=== PATIENT | female | born 1965 | race Caucasian/White ===

== ENCOUNTER 2016-07-30 14:14 | Emergency (ER) | payer SELFPAY ==
[2016-07-30 15:22] VITALS: TEMP 98.7; O2SAT 94
[2016-07-30] MEDS ORDERED: cefTRIAXone SODIUM 1 GM VIAL IM ONE (16:30)
--- NOTE | 2016-07-30 16:33 | ED.PDOC ---
History of Present Illness - General Chief Complaint: Problem Stated Complaint: Dysuria, Bilateral Flank Pain Time Seen by Provider: 07/30/16 15:29 Source: patient Exam Limitations: no limitations - History of Present Illness Initial Comments: The patient is a 51-year-old female presenting to the emergency room secondary to mild diffuse low back pain along with some generalized body aches as well as some dysuria and frequency for somewhere between 1-2 weeks. She has had urinary tract infections in the past. She does have a history of multiple medical problems as well. She sees Dr. Cardona in [place] Timing/Duration: unsure Severity: moderate Improving Factors: nothing Worsening Factors: nothing Associated Symptoms: malaise Allergies/Adverse Reactions: Allergies Clindamycin Allergy (Verified 07/30/16 15:27) Home Medications: Ambulatory Orders Citalopram Hydrobromide [Celexa] 40 mg PO DAILY 10/26/14 Gabapentin 800 mg PO TID 10/26/14 HYDROcodone 10MG/APAP 325MG [[place] 10/325] 1 ea PO QID 10/26/14 Alprazolam [Xanax] 1 mg PO BEDTIME 11/03/15 Levofloxacin [Levaquin] 500 mg PO DAILY #8 tab 11/05/15 Omeprazole Magnesium [Prilosec Otc] 20 mg PO DAILY #30 tab 11/05/15 Probiotic Product [Probiotic] 1 tab PO DAILY #10 tab 11/05/15 guaiFENesin ER TAB [Mucinex Tab] 600 mg PO BID #0 tab 11/05/15 Cephalexin Monohydrate [Keflex] 500 mg PO Q8H #21 cap 07/30/16 Review of Systems - Review of Systems Constitutional: States: malaise, weakness - mild EENTM: States: no symptoms reported Respiratory: States: no symptoms reported Cardiology: States: no symptoms reported Gastrointestinal/Abdominal: States: abdominal pain - mild suprapubic discomfort and cramping Genitourinary: States: dysuria, frequency Musculoskeletal: States: back pain Skin: States: no symptoms reported Neurological: States: no symptoms reported All other Systems: No Change from Baseline Past Medical History (General) - Patient Medical History Hx Seizures: No Hx Stroke: No Hx Dementia: No Hx Asthma: No Hx of COPD: No Hx Cardiac Disorders: No Hx Congestive Heart Failure: No Hx Pacemaker: No Hx Hypertension: No Hx Thyroid Disease: No Hx Diabetes: No Hx Gastroesophageal Reflux: Yes Hx Renal Disease: No Hx Cancer: No Hx of HIV: No Hx Hepatitis C: No Hx MRSA: No Surgical History: Hysterectomy - Vaccination History Hx Tetanus, Diphtheria Vaccination: No Hx Influenza Vaccination: No Hx Pneumococcal Vaccination: Yes Immunizations Up to Date: No - Social History Hx Tobacco Use: No Hx Chewing Tobacco Use: No Hx Alcohol Use: No Hx Substance Use: No Hx Substance Use Treatment: No Hx Depression: No Feels Threatened In Home Enviroment: No Feels Threatened In a Relationship: No Hx Physical Abuse: No Hx Emotional Abuse: No Hx Suspected Abuse: No - Activities of Daily Living Hospice Agency (if applicable):: None - Female History Patient is a Female of Child Bearing Age (10 -59 yrs old): No Patient : No Family Medical History - Family History Father Living Status: Hx Cardiac Disease: Yes Hx Family Diabetes: Yes Mother Family History: Unknown Hx Family Hypertension: Yes Hx Family Diabetes: Yes Physical Exam - Physical Exam General Appearance: Alert, Comfortable, No apparent distress Eye Exam: bilateral normal Ears, Nose, Throat: hearing grossly normal, normal ENT inspection, normal pharynx Neck: non-tender, full range of motion, supple Respiratory: chest non-tender, lungs clear, normal breath sounds, no respiratory distress, no accessory muscle use Cardiovascular/Chest: normal peripheral pulses, regular rate, rhythm, no edema Peripheral Pulses: radial,right: 2+, radial,left: 2+ Rectal Exam: deferred Back Exam: normal inspection, no CVA tenderness, no vertebral tenderness, other - the pain does appear to be present in her back bilaterally lower, but does not appear to be worse with palpation or percussion Extremity: normal range of motion, non-tender, normal inspection, no pedal edema , normal capillary refill Neurologic: alert, normal mood/affect, oriented x 3 Skin Exam: normal color Comments: Vital Signs - 24 hr 07/30/16 15:16 Temperature 98.7 F Pulse Rate [R 95 H Arm] Respiratory 18 Rate Blood Pressure 157/97 [l aRM] O2 Sat by Pulse 94 L Oximetry Progress - Progress Progress: 07/30/16 16:33 the patient is a 51-year-old female presenting to the emergency room with what appears to be cystitis and symptoms related to it. Urine culture is being performed. She needs to follow-up with her primary care doctor on Saturday to obtain a culture result to change antibiotics if necessary. She needs to keep well hydrated. ER warnings were given for any acute worsening. The patient will be placed on Keflex for 7 days. Ibuprofen can be used with food to help reduce back discomfort if needed. - Results/Orders Results/Orders: 07/30/16 15:15 URINE CULTURE W/COLONY COUNT Stat Laboratory Results - last 24 hr 07/30/16 15:15 Urine Color [place] H Urine Appearance Cloudy Urine pH 8.5 H Ur Specific [place] 1.015 Urine Protein 100 H Urine Glucose (UA) 250 H Urine Ketones Trace Urine Blood Negative Urine Nitrite Positive H Urine Bilirubin Small H Urine Urobilinogen 4.0 H Ur Leukocyte Esterase Large H Urine RBC 3-5 H Urine WBC 20-30 H Ur Epithelial Cells 3-5 Amorphous Sediment 3+ Urine Bacteria 3+ H Urine Mucus Small - EKG/XRAY/CT CT Ordered: No CT Interpretation Call Back: No Departure - Departure Clinical Impression: Cystitis Disposition: Discharge to Home or Self Care Condition: Fair Departure Forms: ED Discharge - Pt. Copy, Patient Portal Self Enrollment Instructions: DI for Interstitial Cystitis Diet: regular diet Activity: increase activity as tolerated Referrals: Yemi Cardona MD [Primary Care Provider] - 1-5 Days Prescriptions: Cephalexin Monohydrate [Keflex] 500 mg PO Q8H #21 cap Home Medications: Ambulatory Orders Citalopram Hydrobromide [Celexa] 40 mg PO DAILY 10/26/14 Gabapentin 800 mg PO TID 10/26/14 HYDROcodone 10MG/APAP 325MG [[place] 10/325] 1 ea PO QID 10/26/14 Alprazolam [Xanax] 1 mg PO BEDTIME 11/03/15 Levofloxacin [Levaquin] 500 mg PO DAILY #8 tab 11/05/15 Omeprazole Magnesium [Prilosec Otc] 20 mg PO DAILY #30 tab 11/05/15 Probiotic Product [Probiotic] 1 tab PO DAILY #10 tab 11/05/15 guaiFENesin ER TAB [Mucinex Tab] 600 mg PO BID #0 tab 11/05/15 Cephalexin Monohydrate [Keflex] 500 mg PO Q8H #21 cap 07/30/16 Additional Instructions: the patient is a 51-year-old female presenting to the emergency room with what appears to be cystitis and symptoms related to it. Urine culture is being performed. She needs to follow-up with her primary care doctor on Saturday to obtain a culture result to change antibiotics if necessary. She needs to keep well hydrated. ER warnings were given for any acute worsening. The patient will be placed on Keflex for 7 days. Ibuprofen can be used with food to help reduce back discomfort if needed. the patient does additionally have some glucose in her urine which needs to be followed up with her primary care doctor in the near future. This may simply be due to the infection but does need following.
[2016-07-30] MEDS ORDERED: LIDOCAINE 1% 10 ML VIAL INJ ONE (16:37)
[2016-07-30 17:17] VITALS: BP 162/99
== END 2016-07-30 17:05 | disposition home or self-care (01) ==
LOC: ER 14:14
DX: N30.90 Cystitis, unspecified without hematuria (principal); K21.9 Gastro-esophageal reflux disease without esophagitis; Z88.3 Allergy status to other anti-infective agents; Z79.899 Other long term (current) drug therapy

== ENCOUNTER 2017-08-22 09:53 | Emergency (ER) | payer SELFPAY ==
[2017-08-22] MEDS ORDERED: KETOROLAC TROMETHAMINE INJ 60 MG/2 ML VIAL IM ONE (10:05)
--- NOTE | 2017-08-22 10:09 | ED.PDOC ---
History of Present Illness - General Chief Complaint: Lower Extremity Injury Time Seen by Provider: 08/22/17 10:05 Source: patient, RN notes reviewed Additional Information: 52 YEAR OLD TRIPPED AND INJURED HER LEFT ANKLE LAST NIGHT AT 1 PM UNABLE TO WEIGHT BEAR HAS BEEN USING CRUTCHES REPORTS TO OTHER INJURY SHE IS IN PAIN AND DISCOMFORT AT THIS TIME - History of Present Illness Occurred: yesterday Pain - Lower Extremity: mild: Left Ankle Method of Injury: fell Improving Factors: nothing Worsening Factors: movement Allergies/Adverse Reactions: Allergies Clindamycin Allergy (Verified 07/30/16 15:27) Home Medications: Ambulatory Orders Citalopram Hydrobromide [Celexa] 40 mg PO DAILY 10/26/14 Gabapentin 800 mg PO TID 10/26/14 HYDROcodone 10MG/APAP 325MG [[place] 10/325] 1 ea PO QID 10/26/14 Alprazolam [Xanax] 1 mg PO BEDTIME 11/03/15 Levofloxacin [Levaquin] 500 mg PO DAILY #8 tab 11/05/15 Omeprazole Magnesium [Prilosec Otc] 20 mg PO DAILY #30 tab 11/05/15 Probiotic Product [Probiotic] 1 tab PO DAILY #10 tab 11/05/15 guaiFENesin ER TAB [Mucinex Tab] 600 mg PO BID #0 tab 11/05/15 Cephalexin Monohydrate [Keflex] 500 mg PO Q8H #21 cap 07/30/16 Acetamin W/Cod #3 Tab [Tylenol w/CODEINE #3] 1 ea PO Q6HR PRN #40 tab 08/22/17 Review of Systems - Review of Systems Constitutional: States: no symptoms reported EENTM: States: no symptoms reported Respiratory: States: no symptoms reported Cardiology: States: no symptoms reported Gastrointestinal/Abdominal: States: no symptoms reported Genitourinary: States: no symptoms reported Musculoskeletal: States: no symptoms reported, see HPI Skin: States: no symptoms reported Neurological: States: no symptoms reported Endocrine: States: no symptoms reported Past Medical History (General) - Patient Medical History Hx Seizures: No Hx Stroke: No Hx Dementia: No Hx Asthma: No Hx of COPD: No Hx Cardiac Disorders: No Hx Congestive Heart Failure: No Hx Pacemaker: No Hx Hypertension: No Hx Thyroid Disease: No Hx Diabetes: No Hx Gastroesophageal Reflux: Yes Hx Renal Disease: No Hx Cancer: No Hx of HIV: No Hx Hepatitis C: No Hx MRSA: No - Vaccination History Hx Tetanus, Diphtheria Vaccination: No Hx Influenza Vaccination: No Hx Pneumococcal Vaccination: Yes - Social History Hx Tobacco Use: No Hx Chewing Tobacco Use: No Hx Alcohol Use: No Hx Substance Use: No Hx Substance Use Treatment: No Hx Depression: No Hx Physical Abuse: No Hx Emotional Abuse: No Hx Suspected Abuse: No - Female History Patient : No Family Medical History - Family History Father Living Status: Hx Cardiac Disease: Yes Hx Family Diabetes: Yes Mother Family History: Unknown Hx Family Hypertension: Yes Hx Family Diabetes: Yes Physical Exam - Physical Exam General Appearance: Alert, Anxious Eyes, Ears, Nose, Throat: PERRL/EOMI, normal ENT inspection, TMs normal Neck: non-tender, full range of motion, supple Cardiovascular/Respiratory: regular rate, rhythm, no M/R/G, normal peripheral pulses Back: normal inspection, no CVA tenderness, no vertebral tenderness Ankle: deformity, ecchymosis, limited ROM, soft tissue tenderness, swelling Foot: normal inspection, non-tender, no evidence of injury Neuro/Tendon: normal sensation, normal motor functions, normal tendon functions Progress - Results/Orders Results/Orders: x ray reviewed has a fracture of the lateral malleolus with provide short leg ocl crutches and follow up with ORTHO DR BRIAN Departure - Departure Clinical Impression: Closed fracture of ankle, Fracture of distal end of fibula Disposition: Discharge to Home or Self Care Condition: Good Departure Forms: ED Discharge - Pt. Copy, Patient Portal Self Enrollment Instructions: DI for Leg Pain Activity: other - NON WEIGHT BEARING USE OF CRUTCHES SUGGESTED Referrals: Yemi Cardona MD [Primary Care Provider] - 1-2 Weeks Prescriptions: Acetamin W/Cod #3 Tab [Tylenol w/CODEINE #3] 1 ea PO Q6HR PRN #40 tab PRN Reason: Mild To Moderate Pain Home Medications: Ambulatory Orders Citalopram Hydrobromide [Celexa] 40 mg PO DAILY 10/26/14 Gabapentin 800 mg PO TID 10/26/14 HYDROcodone 10MG/APAP 325MG [[place] 10/325] 1 ea PO QID 10/26/14 Alprazolam [Xanax] 1 mg PO BEDTIME 11/03/15 Levofloxacin [Levaquin] 500 mg PO DAILY #8 tab 11/05/15 Omeprazole Magnesium [Prilosec Otc] 20 mg PO DAILY #30 tab 11/05/15 Probiotic Product [Probiotic] 1 tab PO DAILY #10 tab 11/05/15 guaiFENesin ER TAB [Mucinex Tab] 600 mg PO BID #0 tab 11/05/15 Cephalexin Monohydrate [Keflex] 500 mg PO Q8H #21 cap 07/30/16 Acetamin W/Cod #3 Tab [Tylenol w/CODEINE #3] 1 ea PO Q6HR PRN #40 tab 08/22/17
[2017-08-22 10:10] VITALS: TEMP 99.7; O2SAT 98
--- NOTE | 2017-08-22 10:38 | RAD ---
EXAM DESCRIPTION: Ankle,Left 3 Views CLINICAL HISTORY: trauma COMPARISON: None. IMPRESSION: 3 views of the left ankle show a comminuted spiral fracture of the distal fibula at and proximal to the level of the ankle mortise with mild posterior and lateral displacement of the distal fracture fragment. The ankle mortise appears maintained. No obvious medial malleolar fracture is seen. Moderate soft tissue swelling of the lateral malleolus is seen with small ankle joint effusion. Moderate plantar enthesophyte of the calcaneus is seen. Electronically signed by: Joey Galindo MD 08/22/2017 10:37 AM CDT
[2017-08-22 11:47] VITALS: BP 114/76
== END 2017-08-22 11:47 | disposition home or self-care (01) ==
LOC: ER 09:53
DX: S82.62XA Displaced fracture of lateral malleolus of left fibula, initial encounter for closed fracture (principal); W01.0XXA Fall on same level from slipping, tripping and stumbling without subsequent striking against object, initial encounter
CPT/HCPCS: 73610; J1885

== ENCOUNTER 2017-11-26 16:26 | Emergency (ER) | payer SELFPAY ==
[2017-11-26 16:38] VITALS: TEMP 98.4
--- NOTE | 2017-11-26 16:46 | ED.PDOC ---
History of Present Illness - General Chief Complaint: Upper Extremity Injury Stated Complaint: right wrist pain Time Seen by Provider: 11/26/17 16:43 Source: patient Exam Limitations: no limitations - History of Present Illness Initial Comments: FELL ON AN OUTSTRETCHED HAND A WEEK AGO. NO C/O PAIN TO THE RIGHT PROXIMAL METACARPAL Occurred: other - 8 DAYS AGO Pain - Upper Extremity: moderate: Hand, right Method of Injury: fell Improving Factors: nothing Worsening Factors: nothing Allergies/Adverse Reactions: Allergies Clindamycin Allergy (Verified 11/26/17 16:38) Vomitting Home Medications: Ambulatory Orders Citalopram Hydrobromide [Celexa] 40 mg PO DAILY 10/26/14 Gabapentin 800 mg PO TID 10/26/14 HYDROcodone 10MG/APAP 325MG [[place] 10/325] 1 ea PO QID 10/26/14 Alprazolam [Xanax] 1 mg PO BEDTIME 11/03/15 Levofloxacin [Levaquin] 500 mg PO DAILY #8 tab 11/05/15 Omeprazole Magnesium [Prilosec Otc] 20 mg PO DAILY #30 tab 11/05/15 Probiotic Product [Probiotic] 1 tab PO DAILY #10 tab 11/05/15 guaiFENesin ER TAB [Mucinex Tab] 600 mg PO BID #0 tab 11/05/15 Cephalexin Monohydrate [Keflex] 500 mg PO Q8H #21 cap 07/30/16 Acetamin W/Cod #3 Tab [Tylenol w/CODEINE #3] 1 ea PO Q6HR PRN #40 tab 08/22/17 Tramadol HCl 50 mg PO Q6HR #20 tab 11/26/17 Review of Systems - Review of Systems Constitutional: States: no symptoms reported EENTM: States: no symptoms reported Respiratory: States: no symptoms reported Cardiology: States: no symptoms reported Gastrointestinal/Abdominal: States: no symptoms reported Genitourinary: States: no symptoms reported Musculoskeletal: States: other - RIGHT HAND PAIN Skin: States: no symptoms reported Neurological: States: no symptoms reported Endocrine: States: no symptoms reported Past Medical History (General) - Patient Medical History Hx Seizures: No Hx Stroke: No Hx Dementia: No Hx Asthma: No Hx of COPD: No Hx Cardiac Disorders: No Hx Congestive Heart Failure: No Hx Pacemaker: No Hx Hypertension: No Hx Thyroid Disease: No Hx Diabetes: No Hx Gastroesophageal Reflux: Yes Hx Renal Disease: No Hx Cancer: No Hx of HIV: No Hx Hepatitis C: No Hx MRSA: No Surgical History: Hysterectomy - Vaccination History Hx Tetanus, Diphtheria Vaccination: No Hx Influenza Vaccination: No Hx Pneumococcal Vaccination: Yes - Social History Hx Tobacco Use: No Hx Chewing Tobacco Use: No Hx Alcohol Use: No Hx Substance Use: No Hx Substance Use Treatment: No Hx Depression: No Hx Physical Abuse: No Hx Emotional Abuse: No Hx Suspected Abuse: No - Female History Patient : No Family Medical History - Family History Father Living Status: Hx Cardiac Disease: Yes Hx Family Diabetes: Yes Mother Family History: Unknown Hx Family Hypertension: Yes Hx Family Diabetes: Yes Physical Exam - Physical Exam General Appearance: Alert, No apparent distress Eyes, Ears, Nose, Throat Exam: PERRL/EOMI, normal ENT inspection, TMs normal, pharynx normal Neck: non-tender, full range of motion, supple, normal inspection Cardiovascular/Respiratory: regular rate, rhythm, normal peripheral pulses, no JVD, normal breath sounds, no respiratory distress Abdominal Exam: non-tender Back Exam: normal inspection Elbow/Forearm Exam: normal inspection, non-tender, no evidence of injury Wrist Exam: normal inspection Hand Exam: asymmetry, deformity - ON THE BASE OF THE RIGHT FIFTH METACARPAL Mental Status: alert, oriented x 3 Skin Exam: normal color Progress - Results/Orders Results/Orders: 1745: MINIMALLY DISPLACED FRQACTURE OF THE BASE OF THE RIGHT PROXIMAL METACARPAL. VELCROW WRIST SPLINT APPLIED Departure - Departure Clinical Impression: Boxers fracture Qualifiers: Encounter type: initial encounter Fracture type: closed Qualified Code(s): S62.339A - Displaced fracture of neck of unspecified metacarpal bone, initial encounter for closed fracture Time of Disposition: 17:45 Disposition: Discharge to Home or Self Care Condition: Good Departure Forms: ED Discharge - Pt. Copy, Patient Portal Self Enrollment Instructions: DI for Arm Pain, DI for Hand Pain, Boxer's Fracture Referrals: Yemi Cardona MD [Primary Care Provider] - 1-2 Weeks Prescriptions: Tramadol HCl 50 mg PO Q6HR #20 tab Home Medications: Ambulatory Orders Citalopram Hydrobromide [Celexa] 40 mg PO DAILY 10/26/14 Gabapentin 800 mg PO TID 10/26/14 HYDROcodone 10MG/APAP 325MG [[place] 10/325] 1 ea PO QID 10/26/14 Alprazolam [Xanax] 1 mg PO BEDTIME 11/03/15 Levofloxacin [Levaquin] 500 mg PO DAILY #8 tab 11/05/15 Omeprazole Magnesium [Prilosec Otc] 20 mg PO DAILY #30 tab 11/05/15 Probiotic Product [Probiotic] 1 tab PO DAILY #10 tab 11/05/15 guaiFENesin ER TAB [Mucinex Tab] 600 mg PO BID #0 tab 11/05/15 Cephalexin Monohydrate [Keflex] 500 mg PO Q8H #21 cap 07/30/16 Acetamin W/Cod #3 Tab [Tylenol w/CODEINE #3] 1 ea PO Q6HR PRN #40 tab 08/22/17 Tramadol HCl 50 mg PO Q6HR #20 tab 11/26/17 Additional Instructions: FOLLOW UP WITH DR. DIAZ-ORTHOPEDIC SURGEON
--- NOTE | 2017-11-26 17:17 | RAD ---
EXAM: Hand,Right 3 Views CLINICAL INDICATION: 52-year-old female with painful RIGHT fifth metacarpal. TECHNIQUE: Three views RIGHT hand were obtained in AP, lateral and oblique projections COMPARISON: None. FINDINGS: Oblique fracture of the base of the fifth digit metacarpal minimally displaced. Soft tissue swelling of the dorsum of the hand. No additional fracture is identified. No dislocation. Incidentally noted negative ulnar variance IMPRESSION: Minimally displaced fifth metacarpal fracture as detailed above. Electronically signed by: Karen Lundberg MD 11/26/2017 5:16 PM CDT
[2017-11-26 18:02] VITALS: BP 115/77; O2SAT 94
== END 2017-11-26 18:02 | disposition home or self-care (01) ==
LOC: ER 16:26
DX: S62.339A Displaced fracture of neck of unspecified metacarpal bone, initial encounter for closed fracture (principal); K21.9 Gastro-esophageal reflux disease without esophagitis; Z79.899 Other long term (current) drug therapy; Z88.1 Allergy status to other antibiotic agents; W18.39XA Other fall on same level, initial encounter; Y92.9 Unspecified place or not applicable

== ENCOUNTER 2018-05-16 21:05 | Emergency (ER) | payer SELFPAY ==
[2018-05-16] MEDS ORDERED: IPRATROPIUM/ALBUTEROL 3 ML VIAL NEB ONE ×2 (21:08→21:25)
--- NOTE | 2018-05-16 21:21 | ED.PDOC ---
History of Present Illness - General Stated Complaint: DIFFICULTY BREATHING WEAKNESS Time Seen by Provider: 05/16/18 21:15 Source: EMS notes reviewed, family Additional Information: 53 YEAR OLD BROUGHT HERE BY DAUGHTER FOR EVALUATION OF DIFFICULTY BREATHING WEAKNESS AND LETHARGY SHE HAS HISTORY OF ASPIRATION PNEUMONIA ONCE OT TWICE A YEAR SHE ALSO HAS HISTORY OF ANEMIA SHE IS NOT A SMOKER NO HISTORY OF CHF ASTHMA OR COPD SHE HAS BEEN IN RESPIRATORY FAILURE IN THE PAST REQUIRING VENTILATOR SUPPORT - History of Present Illness Timing/Duration: 1 week Improving Factors: nothing Worsening Factors: nothing Associated Symptoms: cough, loss of appetite, weakness Allergies/Adverse Reactions: Allergies Clindamycin Allergy (Verified 11/26/17 16:38) Vomitting Home Medications: Ambulatory Orders Citalopram Hydrobromide [Celexa] 40 mg PO DAILY 10/26/14 Gabapentin 800 mg PO TID 10/26/14 HYDROcodone 10MG/APAP 325MG [[place] 10/325] 1 ea PO QID 10/26/14 Alprazolam [Xanax] 1 mg PO BEDTIME 11/03/15 Levofloxacin [Levaquin] 500 mg PO DAILY #8 tab 11/05/15 Omeprazole Magnesium [Prilosec Otc] 20 mg PO DAILY #30 tab 11/05/15 Probiotic Product [Probiotic] 1 tab PO DAILY #10 tab 11/05/15 guaiFENesin ER TAB [Mucinex Tab] 600 mg PO BID #0 tab 11/05/15 Cephalexin Monohydrate [Keflex] 500 mg PO Q8H #21 cap 07/30/16 Acetamin W/Cod #3 Tab [Tylenol w/CODEINE #3] 1 ea PO Q6HR PRN #40 tab 08/22/17 Tramadol HCl 50 mg PO Q6HR #20 tab 11/26/17 Review of Systems - Review of Systems Unable to Obtain Due To: condition - PT IS VERY LETHARGIC ANS SLEEPY NOT ABLE TO TALK Past Medical History (General) - Patient Medical History Hx Seizures: No Hx Stroke: No Hx Dementia: No Hx Asthma: No Hx of COPD: No Hx Cardiac Disorders: No Hx Congestive Heart Failure: No Hx Pacemaker: No Hx Hypertension: No Hx Thyroid Disease: No Hx Diabetes: No Hx Gastroesophageal Reflux: Yes Hx Renal Disease: No Hx Cancer: No Hx of HIV: No Hx Hepatitis C: No Hx MRSA: No - Vaccination History Hx Tetanus, Diphtheria Vaccination: No Hx Influenza Vaccination: No Hx Pneumococcal Vaccination: Yes - Social History Hx Tobacco Use: No Hx Chewing Tobacco Use: No Hx Alcohol Use: No Hx Substance Use: No Hx Substance Use Treatment: No Hx Depression: No Hx Physical Abuse: No Hx Emotional Abuse: No Hx Suspected Abuse: No - Female History Patient : No Family Medical History - Family History Father Living Status: Hx Cardiac Disease: Yes Hx Family Diabetes: Yes Mother Family History: Unknown Hx Family Hypertension: Yes Hx Family Diabetes: Yes Physical Exam - Physical Exam General Appearance: Obvious distress, Ill Appearing Eye Exam: bilateral normal Ears, Nose, Throat: hearing grossly normal, normal ENT inspection, normal pharynx Neck: non-tender, full range of motion, supple Respiratory: chest non-tender, respiratory distress, decreased breath sounds, crackles, rhonchi Cardiovascular/Chest: normal peripheral pulses, regular rate, rhythm, no edema, tachycardia Gastrointestinal/Abdominal: normal bowel sounds, non tender, soft, no organomegaly, no pulsatile mass Back Exam: normal inspection, no CVA tenderness, no vertebral tenderness Extremity: normal range of motion, non-tender, normal inspection, no pedal edema Neurologic: other - VERY SLEEPY UNABLE TO PERFORM NEURO EXAM MOVING ALL 4 EXTREMITIES Progress - Results/Orders Results/Orders: Laboratory Tests 05/16/18 05/16/18 05/16/18 21:20 21:20 21:29 WBC 14.4 H RBC 2.65 L Hgb 7.8 L* Hct 23.4 L MCV 88.4 MCH 29.4 MCHC 33.4 RDW 20.2 H Plt Count 437 H MPV 8.3 Absolute Neuts (auto) 10.40 H Absolute Lymphs (auto) 2.70 Absolute Monos (auto) 1.20 H Absolute Eos (auto) 0.00 Absolute Basos (auto) 0.00 Neutrophils % 72.0 Lymphocytes % 18.9 L Monocytes % 8.6 Eosinophils % 0.3 L Basophils % 0.2 pCO2 47 H pO2 53 L HCO3 32.0 ABG pH 7.450 ABG O2 Saturation 90.1 L ABG Base Excess 7.5 ABG Deoxyhemoglobin 9.7 H Oxyhemoglobin % 88.4 L Carboxyhemoglobin % 0.6 Methemoglobin % Sat 1.3 Calc Total Hemoglobin 8.6 L Sodium 134 L Potassium 3.4 L Chloride 95 L Carbon Dioxide 28 Anion Gap 14.4 BUN 18 Creatinine 0.69 BUN/Creatinine Ratio 26.1 H Random Glucose 130 H Serum Osmolality 271.9 L Calcium 8.7 Total Bilirubin 0.7 AST 306 H ALT 765 H Alkaline Phosphatase 74 Serum Total Protein 6.8 Albumin 3.4 Globulin 3.4 Albumin/Globulin Ratio 1.0 L Departure - Departure Clinical Impression: Pneumonia, Hypoxia, Altered mental state, Anemia Time of Disposition: 23:04 Disposition: Transfer to Hospital Condition: Fair Referrals: Yemi Cardona MD [Primary Care Provider] - 1-2 Weeks Home Medications: Ambulatory Orders Citalopram Hydrobromide [Celexa] 40 mg PO DAILY 10/26/14 Gabapentin 800 mg PO TID 10/26/14 HYDROcodone 10MG/APAP 325MG [[place] 10/325] 1 ea PO QID 10/26/14 Alprazolam [Xanax] 1 mg PO BEDTIME 11/03/15 Levofloxacin [Levaquin] 500 mg PO DAILY #8 tab 11/05/15 Omeprazole Magnesium [Prilosec Otc] 20 mg PO DAILY #30 tab 11/05/15 Probiotic Product [Probiotic] 1 tab PO DAILY #10 tab 11/05/15 guaiFENesin ER TAB [Mucinex Tab] 600 mg PO BID #0 tab 11/05/15 Cephalexin Monohydrate [Keflex] 500 mg PO Q8H #21 cap 07/30/16 Acetamin W/Cod #3 Tab [Tylenol w/CODEINE #3] 1 ea PO Q6HR PRN #40 tab 08/22/17 Tramadol HCl 50 mg PO Q6HR #20 tab 11/26/17 Transfer to Outside Facility - Transfer Information Accepting Provider:: DR MYERS Accepting Facility: [facility]
--- NOTE | 2018-05-16 21:23 | RAD ---
EXAM: Chest,1 View CLINICAL INDICATION: Shortness of breath COMPARISON: 11/04/2015 FINDINGS: A single view of the chest was obtained. The heart size is normal. The pulmonary vascularity is unremarkable. The lungs are clear. Hazy opacity in the right lung base most likely represents artifact from overlying breast tissue rather than a true finding. There is no consolidation, infiltrate, pleural effusion, or pneumothorax. IMPRESSION: No evidence of active pulmonary disease. Electronically signed by: Zohaib Decker MD 05/16/2018 9:21 PM [facility]
[2018-05-16] MEDS ORDERED: CEFEPIME 2 GM in SODIUM CHL 0.9% 50ML MIN-BAG+ 50 ML IVPB ONE (21:26)
[2018-05-16] MEDS ORDERED: SODIUM CHLORIDE 0.9% 1000ML 1,000 ML IVS ONE (21:27)
[2018-05-16] MEDS ORDERED: SODIUM CHL 0.9% 50ML MIN-BAG+ 50 ML IVPB ONE (22:01)
[2018-05-16] MEDS ORDERED: CEFEPIME 2 GM VIAL ONE (22:01)
--- NOTE | 2018-05-16 22:43 | CT ---
CLINICAL HISTORY: R/OPE COMPARISON: None. TECHNIQUE: CT CHEST ANGIOGRAPHY WITH IV CONTRAST on 05/16/2018 10:04 PM FINANCIAL INVESTMENT ADVISER. MIPS reconstructions were generated. This exam was performed according to our departmental dose-optimization program, which includes automated exposure control, adjustment of the mA and/or kV according to patient size and/or use of iterative reconstruction technique. MIP images were generated. FINDINGS: Thoracic aorta is normal in course and caliber without aneurysm or dissection. Pulmonary arteries are poorly opacified. Presence or absence of pulmonary emboli is not determined on this study. The heart is mildly enlarged. There is no pericardial effusion. There are multiple borderline and mildly enlarged lymph nodes. There is no pleural effusion, pleural thickening or pneumothorax. Central airways are patent. There are innumerable tree-in-bud nodules throughout both lungs with greatest prominence in the right lower lobe. There is a large hiatal hernia. There are no acute osseous findings. No suspicious bony lesions. IMPRESSION: Bilateral pneumonia. No aortic dissection or aneurysm. Nondiagnostic study of pulmonary arteries. Large hiatal hernia. Electronically signed by: Suraj Shaver MD 05/16/2018 10:41 PM FINANCIAL INVESTMENT ADVISER
[2018-05-16 23:07] VITALS: TEMP 97.5
[2018-05-16 23:58] VITALS: BP 123/79; O2SAT 94
== END 2018-05-16 23:58 | disposition short-term general hospital (02) ==
LOC: ER 21:05
DX: J18.9 Pneumonia, unspecified organism (principal); R09.02 Hypoxemia; D64.9 Anemia, unspecified; R41.82 Altered mental status, unspecified; K21.9 Gastro-esophageal reflux disease without esophagitis; Z79.899 Other long term (current) drug therapy; Z88.1 Allergy status to other antibiotic agents; Z87.01 Personal history of pneumonia (recurrent)
CPT/HCPCS: 36415; 36600; 71045; 71275; 80053; 80307; 80320; 80329; 81001; 82803; 82805; 85025; 87040; 93005; 94640; J0692; J7030; J7050; J7620

== ENCOUNTER 2018-06-04 10:12 | Observation (INO) | payer SELFPAY ==
--- NOTE | 2018-06-04 11:55 | RAD ---
EXAM DESCRIPTION: Chest,2 Views CLINICAL HISTORY: 53 years Female, fungalsepsis, feeling poorly COMPARISON: Radiographs the chest dated May 16, 2018. TECHNIQUE: PA and lateral radiographs of the chest were obtained. FINDINGS: Trachea is midline.The cardiomediastinal silhouette is normal in size. The pulmonary vasculature is within normal limits.The lungs are clear with no acute consolidation.No evidence of pleural effusions.No evidence of pneumothorax. IMPRESSION: No acute cardiopulmonary process. Electronically signed by: Mariluz Christianson MD 06/04/2018 11:54 AM [facility]
[2018-06-04] MEDS ORDERED: SODIUM CHLORIDE 0.9% 1000ML 1,000 ML IVS ONE (13:07)
--- NOTE | 2018-06-04 13:20 | ED.PDOC ---
History of Present Illness - General Chief Complaint: General Time Seen by Provider: 06/04/18 10:14 Source: patient, RN notes reviewed Exam Limitations: no limitations - History of Present Illness Initial Comments: The patient is a 53-year-old female presenting to the emergency room secondary to generalized fatigue and mild unsteadiness and a little bit of dizziness over the last 24 hours. She has been self dosing herself for her chronic pain with several different forms of opiate-type medications. Additionally she has been receiving daily IV micafungin for a fungal sepsis. She has another 7 or 8 days of IV dosing to go. She does have a right midline in. She is a little bit drowsy here but oriented. When she goes to sleep she does desaturate mildly to around 88%. This is apparently not a new issue. No fever. No palpitations. No syncope or near-syncope. No vegetations or smell changes. No focal neurological changes otherwise. Lungs are clear at this time. Family does report that the patient has had multiple episodes of pneumonia in the past. Timing/Duration: unsure Severity: moderate Improving Factors: nothing Worsening Factors: nothing Allergies/Adverse Reactions: Allergies Clindamycin Allergy (Verified 06/04/18 10:23) Vomitting Home Medications: Ambulatory Orders Methadone HCl [Methadone] 10 mg PO DAILY 05/16/18 Quetiapine Fumarate 100 mg PO DAILY 05/16/18 Oxycodone HCl 10 mg PO BID PRN 06/04/18 Review of Systems - Review of Systems Review of Systems: 06/04/18 13:20 the patient does have multiple issues with chronic pain Constitutional: States: malaise EENTM: States: no symptoms reported Respiratory: States: no symptoms reported Cardiology: States: no symptoms reported Gastrointestinal/Abdominal: States: no symptoms reported Genitourinary: States: no symptoms reported Musculoskeletal: States: no symptoms reported Skin: States: no symptoms reported Neurological: States: no symptoms reported Endocrine: States: no symptoms reported All other Systems: No Change from Baseline Past Medical History (General) - Patient Medical History Hx Seizures: No Hx Stroke: No Hx Dementia: No Hx Asthma: No Hx of COPD: No Hx Cardiac Disorders: No Hx Congestive Heart Failure: No Hx Pacemaker: No Hx Hypertension: No Hx Thyroid Disease: No Hx Diabetes: No Hx Gastroesophageal Reflux: Yes Hx Renal Disease: No Hx Cancer: No Hx of HIV: No Hx Hepatitis C: No Hx MRSA: No - Vaccination History Hx Tetanus, Diphtheria Vaccination: No Hx Influenza Vaccination: No Hx Pneumococcal Vaccination: No - Social History Hx Tobacco Use: No Hx Chewing Tobacco Use: No Hx Alcohol Use: No Hx Substance Use: No Hx Substance Use Treatment: No Hx Depression: No Hx Physical Abuse: No Hx Emotional Abuse: No Hx Suspected Abuse: No - Female History Patient : No Family Medical History - Family History Father Living Status: Hx Cardiac Disease: Yes Hx Family Diabetes: Yes Mother Family History: Unknown Hx Family Hypertension: Yes Hx Family Diabetes: Yes Physical Exam - Physical Exam General Appearance: Comfortable, No apparent distress - she is a little drowsy Eye Exam: bilateral normal Ears, Nose, Throat: hearing grossly normal, normal ENT inspection, normal pharynx Neck: full range of motion, supple Respiratory: lungs clear, normal breath sounds, no respiratory distress, no accessory muscle use Cardiovascular/Chest: normal peripheral pulses, regular rate, rhythm, no edema Peripheral Pulses: radial,right: 2+, radial,left: 2+, dorsalis pedis,right: 2+, dorsalis pedis,left: 2+ Gastrointestinal/Abdominal: non tender, soft Rectal Exam: deferred Extremity: normal range of motion, no pedal edema, normal capillary refill Neurologic: audio production manager II-XII nml as tested, alert, normal mood/affect, oriented x 3 Skin Exam: normal color Comments: Vital Signs - 24 hr 06/04/18 10:18 Temperature 98.8 F Pulse Rate [ 97 H Left Radial] Respiratory 18 Rate Blood Pressure 145/94 [Left Arm] O2 Sat by Pulse 92 L Oximetry right mid line is in place Progress - Progress Progress: 06/04/18 13:21 the patient is a 53-year-old female presenting primarily secondary to fatigue and mild generalized weakness and dizziness for the last day. Laboratory work looks reassuring. Urine drug screen and urinalysis are still pending. She is receiving a small fluid bolus. Given that the patient is currently undergoing treatment for fungal sepsis, the patient is going to be admitted for observation overnight. She still needs her dose of micafungin today. Repeat blood cultures have been taken here today. Given the laboratory work, physical exam and history of thick it is most likely that the patient is simply overmedicated at this point. She does need a little bit of supplemental oxygen while she sleeps. She does desaturate down to around 88% without it. She may need a formal sleep study in the near future. - Results/Orders Results/Orders: 06/04/18 10:33 URINE DRUG SCREEN, 7 ASSAY Stat UA [URINALYSIS] Stat 06/04/18 11:05 BLOOD CULTURE Stat 06/04/18 13:07 Sodium Chloride 0.9% 1000ML [Ns 1000 ml] 1,000 ml IVS ONCE Laboratory Results - last 24 hr 06/04/18 06/04/18 06/04/18 11:05 11:05 11:05 WBC 4.9 RBC 4.08 L Hgb 11.3 L Hct 35.6 L MCV 87.3 MCH 27.6 MCHC 31.6 L RDW 30.3 H Plt Count 399 MPV 9.1 Absolute Neuts (auto) 2.70 Absolute Lymphs (auto) 1.50 Absolute Monos (auto) 0.40 Absolute Eos (auto) 0.20 Absolute Basos (auto) 0.10 Neutrophils % 54.4 Lymphocytes % 30.3 Monocytes % 9.0 Eosinophils % 4.5 Basophils % 1.8 Sodium 139 Potassium 3.8 Chloride 105 Carbon Dioxide 26 Anion Gap 11.8 L BUN 12 Creatinine 0.49 L BUN/Creatinine Ratio 24.5 H Random Glucose 112 H Serum Osmolality 278.0 Lactic Acid 1.1 Calcium 9.3 Total Bilirubin 0.4 AST 25 ALT 32 Alkaline Phosphatase 76 Creatine Kinase 53 CK-MB (CK-2) 0.8 CK-MB (CK-2) % Not Reportable Troponin I < 0.02 B-Natriuretic Peptide 44.6 Serum Total Protein 7.0 Albumin 3.5 Globulin 3.5 Albumin/Globulin Ratio 1.0 L urinalysis and urine drug screen are still pending Departure - Departure Clinical Impression: Lethargy, Fungal sepsis Disposition: Admit Patient Departure Forms: ED Discharge - Pt. Copy, Patient Portal Self Enrollment Referrals: Yemi Cardona MD [Primary Care Provider] - 1-2 Weeks Home Medications: Ambulatory Orders Methadone HCl [Methadone] 10 mg PO DAILY 05/16/18 Quetiapine Fumarate 100 mg PO DAILY 05/16/18 Oxycodone HCl 10 mg PO BID PRN 06/04/18 Decision To Admit - Decistion To Admit Decision to Admit Reason: Medical Nature Decision to Admit Date: 06/04/18 Decision to Admit Time: 13:24
--- NOTE | 2018-06-04 14:23 | HP ---
SUPERVISING PHYSICIAN: Julio Davis MD CHIEF COMPLAINT: Lethargy and decreased level of consciousness. HISTORY OF PRESENT ILLNESS: This is a 53-year-old female patient who presented to the Emergency Room secondary to generalized fatigue, mild unsteadiness on her feet and some dizziness on the previous 24 hours. She had been self-dosing for her chronic pain with several different forms of opiate type medications. She has a long history of opiate use with chronic pain syndrome. She also was very lethargic and they had a difficult time arousing her from sleep in the Emergency Room. Her oxygen saturations dropped into the 80s and she required some oxygen to get her O2 saturations above 90. She was supposed to come to the hospital this morning for her Micafungin IV infusion that she has been getting daily for fungal sepsis. She has approximately another week of IV dosing to go. She has a right midline IV catheter in. She was drowsy in the Emergency Room and frequently went to sleep. She would awaken easily and she was oriented times 3, but she would go right back to sleep. Lab was done in the Emergency Room and her CBC was basically within normal limits. Her electrolytes were within normal limits. Her lactic acid was 1.0. Her liver function tests were within normal limits and her cardiac enzymes were negative. Her urinalysis was within normal limits. Her urine drug screen was positive for opiates and positive for benzodiazepines. She sees Dr. Cardona in [place]. Chest x-ray showed no acute cardiopulmonary processes. I was called for hospital admission. PAST MEDICAL HISTORY: 1. Rheumatoid arthritis. 2. Fibromyalgia. 3. Anxiety and depression. 4. Chronic hypoxemia requiring O2 at as needed. 5. Gastroesophageal reflux disease. 6. Large hiatal hernia. 7. Chronic pain syndrome and has been on multiple opiates in the past, presently is only on methadone. 8. History of multiple hospitalizations for aspiration pneumonia. PAST SURGICAL HISTORY: 1. Hysterectomy. 2. Appendectomy. OUTPATIENT MEDICATIONS: Per the EMR and awaiting verification. ALLERGIES: NO KNOWN DRUG ALLERGIES. FAMILY HISTORY: Positive for diabetes. SOCIAL HISTORY: She is . She is unemployed and disabled secondary to fibromyalgia. She denies any smoking, ETOH or illicit drug use. REVIEW OF SYSTEMS: GENERAL: Negative for fever, fatigue or weight changes. HEENT: Negative for sinus symptoms, ear pain, vision changes or sore throat. RESPIRATORY: Negative for wheezing, coughing or shortness of breath. CARDIAC: Negative for chest pain, palpitations or tachycardia. GASTROINTESTINAL: Negative for nausea, vomiting, diarrhea, constipation. NEUROLOGIC: Positive for decreased level of consciousness, mild dizziness and a history of fibromyalgia, rheumatoid arthritis and chronic pain. PHYSICAL EXAMINATION: VITAL SIGNS: Afebrile. Heart rate 106. Blood pressure 145/90. Respiratory rate 18. O2 saturation 94% on room air. GENERAL: This is a 53-year-old female patient who is lying in her hospital bed. She is in no acute distress. HEENT: Normocephalic, atraumatic. Pupils are equal and reactive. Oropharynx is clear. NECK: Supple without mass. RESPIRATORY: Essentially clear to auscultation bilaterally. CHEST: There is equal rise and fall of the chest with inspiration and expiration. CARDIOVASCULAR: Regular rate and rhythm. GASTROINTESTINAL: Abdomen is soft, nondistended, nontender. Bowel sounds are positive. EXTREMITIES: No cyanosis, clubbing or edema. NEUROLOGIC: Awake, but somewhat lethargic. She can answer questions appropriately. Cranial nerves II-XII are grossly intact. She does have some very slightly slurred speech. LABORATORY: Labs and films are as per history of present illness. IMPRESSION: 1. Decreased level of consciousness, most likely secondary to opiate oversedation due to self-medication. 2. Opiate addiction. 3. Unknown fungal infection, presently on IV fungal medications, being managed by Dr. Carcamo, infectious disease in [place]. 4. History of fibromyalgia. 5. History of rheumatoid arthritis. 6. Chronic hypoxia on home O2 as needed. 7. Gastroesophageal reflux disease. 8. Chronic pain syndrome. PLAN: We will place the patient in observation. I have spoken to Dr. Cardona, her primary care physician, and he says she is only on methadone 10 mg twice daily. We checked the SKIING TEACHER and she received some oxycodone from an Emergency Room doctor in [place]. She received 5 mg b.i.d., #24, on 05/23/18. She received 60 tablets of methadone 10 mg b.i.d. from [facility] on 05/10/18. She also gets tramadol. I have re-started her tramadol and will re-start her methadone as soon as she becomes less lethargic. I discussed with him at length her condition and he feels strongly that she needs to go to a rehab facility and he has been trying to get her into one, but she will not go. He has been weaning her off her medications. I have given her a proton pump inhibitor for ulcer prophylaxis. As soon as her home medications are verified, other than the narcotics, I will re-start those. She will get her antifungal medication that was scheduled for earlier today. She will get that this afternoon and I will also give her a dose tomorrow. Hopefully, she can be discharged after her IV infusion tomorrow. She will need close followup with Dr. Cardona. I will send Dr. Cardona the progress notes and testing results from the hospital at his request. We will continue to monitor the patient closely and follow as needed. #[id number] [facility]
[2018-06-04] MEDS ORDERED: SODIUM CHLORIDE 0.9% (FLUSH) 10 ML SYG IV PRN (15:01)
[2018-06-04] MEDS ORDERED: ONDANSETRON INJ 4 MG/2 ML VIAL IV PRN (15:01)
[2018-06-04] MEDS ORDERED: IV SET AND CAP CHANGE INJ INJ SCH (15:30)
[2018-06-04] MEDS ORDERED: ALPRAZolam 0.5 MG TAB PO PRN (19:46)
[2018-06-04] MEDS ORDERED: MICAFUNGIN SODIUM 100 MG IV SCH (20:00)
[2018-06-04] MEDS ORDERED: MICAFUNGIN SODIUM 100 MG IVPB ONE (20:00)
[2018-06-04] MEDS ORDERED: SODIUM CHLORIDE 0.9% 100ML 100 ML IVPB ONE (20:01)
[2018-06-04] MEDS ORDERED: OMEPRAZOLE CAP 20 MG CAP ONE (20:05)
[2018-06-04] MEDS ORDERED: GABAPENTIN 400 MG CAP ONE (20:06)
[2018-06-04] MEDS ORDERED: METHADONE HCL 10 MG TAB PO SCH (21:00)
[2018-06-04] MEDS: METHADONE HCL 10 MG TAB PO SCH (21:06)
[2018-06-04] MEDS: SODIUM CHLORIDE 0.9% (FLUSH) 10 ML SYG IV SCH (21:07)
[2018-06-04] MEDS: GABAPENTIN 800 MG PO SCH (21:07)
[2018-06-04] MEDS: traMADol HCL 50 MG TAB PO PRN (21:39)
[2018-06-05] MEDS ORDERED: PANTOPRAZOLE SODIUM IV 40 MG VIAL IV SCH (06:30)
[2018-06-05] MEDS ORDERED: OMEPRAZOLE CAP 20 MG CAP PO SCH (06:30)
[2018-06-05] MEDS ORDERED: GABAPENTIN 400 MG CAP ONE (08:46)
[2018-06-05] MEDS ORDERED: QUEtiapine FUMARATE 100 MG TAB PO SCH (09:00)
[2018-06-05] MEDS ORDERED: NON-FORMULARY MEDICATION 1 EA MIS (Esomeprazole Magnesium [Nexium] 40 MG) PO SCH (09:00)
[2018-06-05] MEDS: METHADONE HCL 10 MG TAB PO SCH (09:10)
[2018-06-05] MEDS: GABAPENTIN 800 MG PO SCH (09:14)
[2018-06-05] MEDS: SODIUM CHLORIDE 0.9% (FLUSH) 10 ML SYG IV SCH (09:20)
[2018-06-05 10:26] VITALS: TEMP 97.9
[2018-06-05] MEDS: traMADol HCL 50 MG TAB PO PRN (12:13)
[2018-06-05] MEDS ORDERED: SODIUM CHL 0.9% 100ML MINI-BAG 0 ML IVPB ONE (12:58)
[2018-06-05] MEDS ORDERED: MICAFUNGIN SODIUM 100 MG IV SCH (13:00)
[2018-06-05] MEDS ORDERED: MICAFUNGIN SODIUM 100 MG IVPB ONE (13:00)
[2018-06-05] MEDS ORDERED: GABAPENTIN 400 MG CAP PO SCH (13:00)
[2018-06-05] MEDS ORDERED: SODIUM CHLORIDE 0.9% 100ML 100 ML IVPB ONE (13:01)
[2018-06-05 13:53] VITALS: BP 160/95; O2SAT 94
--- NOTE | 2018-06-05 22:25 | DS ---
SUPERVISING PHYSICIAN: Julio Davis M.D. DISCHARGE DIAGNOSIS: 1. Decreased level of consciousness, most likely secondary to opiate oversedation due to self-medication. 2. Opiate addiction. 3. Unknown fungal infection, presently on IV fungal medications, being managed by Dr. Carcamo, infectious disease in [place]. 4. History of fibromyalgia. 5. History of rheumatoid arthritis. 6. Chronic hypoxia on home O2 as needed. 7. Gastroesophageal reflux disease. 8. Chronic pain syndrome. HISTORY OF PRESENT ILLNESS: This is a 53-year-old female patient who presented to the Emergency Room secondary to generalized fatigue, mild unsteadiness on her feet and some dizziness on the previous 24 hours. She had been self-dosing for her chronic pain with several different forms of opiate type medications. She has a long history of opiate use with chronic pain syndrome. She also was very lethargic and they had a difficult time arousing her from sleep in the Emergency Room. Her oxygen saturations dropped into the 80s and she required some oxygen to get her O2 saturations above 90. She was supposed to come to the hospital this morning for her Micafungin IV infusion that she has been getting daily for fungal sepsis. She has approximately another week of IV dosing to go. She has a right midline IV catheter in. She was drowsy in the Emergency Room and frequently went to sleep. She would awaken easily and she was oriented times 3, but she would go right back to sleep. Lab was done in the Emergency Room and her CBC was basically within normal limits. Her electrolytes were within normal limits. Her lactic acid was 1.0. Her liver function tests were within normal limits and her cardiac enzymes were negative. Her urinalysis was within normal limits. Her urine drug screen was positive for opiates and positive for benzodiazepines. She sees Dr. Cardona in [place]. Chest x-ray showed no acute cardiopulmonary processes. I was called for hospital admission. HOSPITAL COURSE: The patient became more alert over the first few hours of her hospital stay. She did complain of pain quite frequently during her admission. I spoke with her primary care physician, Dr. Yemi Cardona, and he said that her prescriptions were for Tramadol 50 mg every 6 hours p.r.n. as well as Methadone 10 mg p.o. b.i.d. Those medications were restarted. She did have some p.r.n. Xanax for sleep. Her Micafungin IV infusion was completed on the date of admission. This morning she completed another round of her Micafungin infusion. Blood cultures were drawn in the Emergency Room and preliminary blood cultures at 24 hours showed no growth. There was no other repeat lab work. The patient was much more awake this morning as well as this afternoon. She tolerated her meals without any problems. After completion of her antifungal infusion she was discharged home in stable condition. DISCHARGE PLAN: The patient will be discharged home in stable condition. She will continue her antiviral infusion tomorrow. She has approximately 1 week left on that infusion. She has an appointment with Dr. Cardona tomorrow. I am not sure of the time, but the patient stated she would see him tomorrow. I reviewed the SLITTING MACHINE OPERATOR web site and she received Methadone 10 mg b.i.d. #60 on 05/10/18. She also received a Tramadol prescription 50 mg every 6 hours p.r.n. for pain, #90 on 05/29/18. She received a prescription of Oxycodone on 05/23/18, they were 5 mg Oxycodone b.i.d. #24 from the [facility] physician. The other prescriptions were from Dr. Cardona. She is to return to the hospital or followup with Dr. Cardona for any problems or complications. DISCHARGE MEDICATIONS: 1. Gabapentin. 2. Methadone. 3. Nexium. 4. Micafungin. 5. Tramadol. #[id number] [facility]
== END 2018-06-05 15:52 | disposition home or self-care (01) ==
LOC: ER 10:12 → MS 14:21
PROVIDERS: ADMIT Nurse Practitioner Acute Care; ATTEND Nurse Practitioner Acute Care
DX: B37.7 Candidal sepsis (principal); F11.20 Opioid dependence, uncomplicated; T40.2X1A Poisoning by other opioids, accidental (unintentional), initial encounter; R26.81 Unsteadiness on feet; R40.4 Transient alteration of awareness; G89.4 Chronic pain syndrome; M79.7 Fibromyalgia; M06.9 Rheumatoid arthritis, unspecified; R09.02 Hypoxemia; K21.9 Gastro-esophageal reflux disease without esophagitis; F41.9 Anxiety disorder, unspecified; F32.9 Major depressive disorder, single episode, unspecified; Z99.81 Dependence on supplemental oxygen; Z79.899 Other long term (current) drug therapy; Y92.009 Unspecified place in unspecified non-institutional (private) residence as the place of occurrence of the external cause
CPT/HCPCS: 96366 ×2; 96365; 96375; J7030; J7050 ×2; 82553; 80053; 80307; 36415 ×2; 81001; 85025; 82550; 87040 ×2; 84484; 83880; 83605; 71046; 94762; 99285; 87502

== ENCOUNTER 2018-07-04 18:03 | Emergency (ER) | payer SELFPAY ==
--- NOTE | 2018-07-04 18:46 | ED.PDOC ---
History of Present Illness - General Chief Complaint: Respiratory Problem Time Seen by Provider: 07/04/18 18:20 Source: patient, family Exam Limitations: no limitations - History of Present Illness Initial Comments: patient comes in today with 2 day history of worsening shortness of breath and weakness. Patient states she's also had a mild cough over the past week that is nonproductive but concerning. Patient states she's had a very difficult time in the past 6 years with recurrent anemia resulting in multiple transfusions. She does have a medical specialist and has undergone endoscopy without any etiology of the blood loss at this time. Patient states that on the 02 of June she was severely anemic and septic later found to have a fungal pneumonia and was treated in [place]. Patient did get better and the cough did resolve. However, she was concerned that she only received 5 out of 14 days that she was originally planned of the IV antibiotics at home. Patient denies any fever or chills. She has no nausea or vomiting. At home her pulse oximeter was reading in between 80s and 90salthough here it's 100% on room air. Timing/Duration: 1 week Severity: moderate Activities at Onset: rest Possible Cause: chronic episodes Improving Factors: rest Worsening Factors: movement Associated Symptoms: cough, weakness Respiratory Risk Factors: no cause identified Allergies/Adverse Reactions: Allergies Clindamycin Allergy (Verified 06/04/18 10:23) Vomitting Home Medications: Ambulatory Orders Esomeprazole Magnesium [Nexium] 40 mg PO DAILY 06/04/18 Gabapentin [Neurontin] 800 mg PO QID 06/04/18 Methadone HCl [Methadone] 10 mg PO BID 06/04/18 Micafungin Sodium [Mycamine] 100 mg IV DAILY 06/04/18 Tramadol HCl 50 mg PO Q6H PRN #1 tab 06/05/18 Review of Systems - Review of Systems Constitutional: States: weakness. Denies: chills, fever EENTM: Denies: ear pain, nose congestion, throat pain Respiratory: States: cough, short of breath. Denies: wheezing Cardiology: States: no symptoms reported. Denies: chest pain, edema, palpitations Gastrointestinal/Abdominal: States: no symptoms reported. Denies: abdominal pain, diarrhea, nausea, vomiting Musculoskeletal: States: no symptoms reported Past Medical History (General) - Patient Medical History Hx Seizures: No Hx Stroke: No Hx Dementia: No Hx Asthma: No Hx of COPD: No Hx Cardiac Disorders: No Hx Congestive Heart Failure: No Hx Pacemaker: No Hx Hypertension: No Hx Thyroid Disease: No Hx Diabetes: No Hx Gastroesophageal Reflux: Yes Hx Renal Disease: No Hx Cancer: No Hx of HIV: No Hx Hepatitis C: No Hx MRSA: No - Vaccination History Hx Tetanus, Diphtheria Vaccination: No Hx Influenza Vaccination: No Hx Pneumococcal Vaccination: No - Social History Hx Tobacco Use: No Hx Chewing Tobacco Use: No Hx Alcohol Use: No Hx Substance Use: No Hx Substance Use Treatment: No Hx Depression: No Hx Physical Abuse: No Hx Emotional Abuse: No Hx Suspected Abuse: No - Female History Patient : No Family Medical History - Family History Father Living Status: Hx Cardiac Disease: Yes Hx Family Diabetes: Yes Mother Family History: Unknown Hx Family Hypertension: Yes Hx Family Diabetes: Yes Physical Exam - Physical Exam General Appearance: Alert, Frail, No apparent distress Eyes, Ears, Nose, Throat Exam: PERRL/EOMI, normal ENT inspection, TMs normal, pharynx normal Neck: non-tender, full range of motion, supple, normal inspection Respiratory: chest non-tender, lungs clear, normal breath sounds, no respiratory distress, no accessory muscle use Cardiovascular/Chest: normal peripheral pulses, regular rate, rhythm, no edema, no murmur Gastrointestinal/Abdominal: normal bowel sounds, non tender, soft Extremity: normal range of motion, non-tender, normal inspection Neurologic: alert, oriented x 3 Progress - Progress Progress: 07/04/18 19:16 patient remains with O2 Sat 100% on RA and no respiratory distress. Explained normal results and will have her follow up on Saturday with PCP and next week as planned with Heme - Results/Orders Results/Orders: 07/04/18 18:20 Chest,2 Views [RAD] Stat Laboratory Results WBC 7.7 K/mm3 (4.8-10.8) 07/04/18 18:39 RBC 4.22 M/mm3 (4.20-5.40) 07/04/18 18:39 Hgb 11.8 gm/dL (12.0-16.0) L 07/04/18 18:39 Hct 36.6 % (36.0-47.0) 07/04/18 18:39 MCV 86.7 fl (81.0-99.0) 07/04/18 18:39 MCH 27.9 pg (27.0-31.0) 07/04/18 18:39 MCHC 32.2 g/dL (33.0-37.0) L 07/04/18 18:39 RDW 23.5 % (11.5-14.5) H 07/04/18 18:39 Plt Count 314 K/mm3 (130-400) 07/04/18 18:39 MPV 8.9 fl (7.40-10.4) 07/04/18 18:39 Absolute Neuts (auto) 3.90 K/uL (1.8-6.8) 07/04/18 18:39 Absolute Lymphs (auto) 2.70 K/uL (1.0-3.4) 07/04/18 18:39 Absolute Monos (auto) 0.70 K/uL (0.2-0.8) 07/04/18 18:39 Absolute Eos (auto) 0.30 K/uL (0.0-0.4) 07/04/18 18:39 Absolute Basos (auto) 0.10 K/uL (0.0-0.1) 07/04/18 18:39 Neutrophils % 51.0 % (42.0-78.0) 07/04/18 18:39 Lymphocytes % 34.8 % (20.0-50.0) 07/04/18 18:39 Monocytes % 9.3 % (2.0-9.0) H 07/04/18 18:39 Eosinophils % 3.9 % (1.0-5.0) 07/04/18 18:39 Basophils % 1.0 % (0.0-2.0) 07/04/18 18:39 PT 10.3 SECONDS (9.0-10.9) 07/04/18 18:39 INR 1.03 (0.9-1.15) 07/04/18 18:39 PTT (SP) 23.2 SECONDS (21.8-31.6) 07/04/18 18:39 Sodium 141 mmol/L (135-145) 07/04/18 18:39 Potassium 3.5 mmol/L (3.6-5.0) L 07/04/18 18:39 Chloride 110 mmol/L (101-111) 07/04/18 18:39 Carbon Dioxide 23 mmol/L (21-31) 07/04/18 18:39 Anion Gap 11.5 (12-18) L 07/04/18 18:39 BUN 14 mg/dL (7-18) 07/04/18 18:39 Creatinine 0.56 mg/dL (0.6-1.3) L 07/04/18 18:39 BUN/Creatinine Ratio 25.0 (10-20) H 07/04/18 18:39 Random Glucose 112 mg/dL (70-105) H 07/04/18 18:39 Serum Osmolality 282.5 mOsm/L (275-295) 07/04/18 18:39 Calcium 8.8 mg/dL (8.4-10.2) 07/04/18 18:39 Magnesium 2.0 mg/dL (1.8-2.5) 07/04/18 18:39 Total Bilirubin 0.3 mg/dL (0.2-1.0) 07/04/18 18:39 AST 22 IU/L (10-42) 07/04/18 18:39 ALT 19 IU/L (10-60) 07/04/18 18:39 Alkaline Phosphatase 65 IU/L (42-121) 07/04/18 18:39 Creatine Kinase 72 IU/L (26-140) 07/04/18 18:39 CK-MB (CK-2) 0.7 ng/mL (0.0-4.4) 07/04/18 18:39 CK-MB (CK-2) % Not Reportable 07/04/18 18:39 Troponin I < 0.02 ng/mL (0.01-0.05) 07/04/18 18:39 Serum Total Protein 7.0 gm/dL (6.4-8.2) 07/04/18 18:39 Albumin 3.8 g/dl (3.2-5.5) 07/04/18 18:39 Globulin 3.2 gm/dL (2.3-3.5) 07/04/18 18:39 Albumin/Globulin Ratio 1.2 (1.1-1.9) 07/04/18 18:39 Departure - Departure Clinical Impression: Cough Disposition: Discharge to Home or Self Care Condition: Good Departure Forms: ED Discharge - Pt. Copy, Patient Portal Self Enrollment Referrals: Yemi Cardona MD [Primary Care Provider] - 1-2 Weeks Home Medications: Ambulatory Orders Esomeprazole Magnesium [Nexium] 40 mg PO DAILY 06/04/18 Gabapentin [Neurontin] 800 mg PO QID 06/04/18 Methadone HCl [Methadone] 10 mg PO BID 06/04/18 Micafungin Sodium [Mycamine] 100 mg IV DAILY 06/04/18 Tramadol HCl 50 mg PO Q6H PRN #1 tab 06/05/18 Additional Instructions: follow up with PCP on Saturday, return to ER for increased shortness of breath, fever >100.5, or worsening symptoms
--- NOTE | 2018-07-04 19:14 | RAD ---
EXAM DESCRIPTION: Chest,2 Views CLINICAL HISTORY: 53 years Female shortness of breath COMPARISON: None. FINDINGS: The cardiomediastinal silhouette appears unremarkable. No consolidating infiltrates or pleural effusions. No pneumothorax. No significant changes are visualized compared to the prior study. IMPRESSION: No acute abnormality is identified. Electronically signed by: Rodolfo Harrison MD 07/04/2018 7:13 PM [facility]
[2018-07-04 19:51] VITALS: BP 148/60; TEMP 98.6
[2018-07-04 19:55] VITALS: O2SAT 98
== END 2018-07-04 19:52 | disposition home or self-care (01) ==
LOC: ER 18:03
DX: R05 Cough (principal); R06.02 Shortness of breath; K21.9 Gastro-esophageal reflux disease without esophagitis; Z79.899 Other long term (current) drug therapy; Z88.1 Allergy status to other antibiotic agents

== ENCOUNTER 2018-07-06 12:34 | Emergency (ER) | payer SELFPAY ==
--- NOTE | 2018-07-06 12:56 | ED.PDOC ---
History of Present Illness - General Chief Complaint: General Stated Complaint: weakness,hurts all over,fever Time Seen by Provider: 07/06/18 12:53 Source: patient, Vital Signs reviewed Additional Information: 53 YEAR OLD WHITE FEMALE HERE WITH COMPLAINTS OF GENERALISED WEAKNESS FEVER BODY ACHES SHE HAS RECENT HISTORY OF SEPSIS TREATED AT [facility] 4 WEEKS AGO - History of Present Illness Timing/Duration: 1 week Severity: moderate Improving Factors: nothing Worsening Factors: nothing Associated Symptoms: malaise, weakness Allergies/Adverse Reactions: Allergies Clindamycin Allergy (Verified 06/04/18 10:23) Vomitting Home Medications: Ambulatory Orders Esomeprazole Magnesium [Nexium] 40 mg PO DAILY 06/04/18 Gabapentin [Neurontin] 800 mg PO QID 06/04/18 Methadone HCl [Methadone] 10 mg PO BID 06/04/18 Micafungin Sodium [Mycamine] 100 mg IV DAILY 06/04/18 Tramadol HCl 50 mg PO Q6H PRN #1 tab 06/05/18 Review of Systems - Review of Systems Constitutional: States: see HPI, chills EENTM: States: no symptoms reported Respiratory: States: no symptoms reported Cardiology: States: no symptoms reported Gastrointestinal/Abdominal: States: no symptoms reported Genitourinary: States: no symptoms reported Musculoskeletal: States: no symptoms reported Skin: States: no symptoms reported Neurological: States: no symptoms reported, emotional problems Hematologic/Lymphatic: States: no symptoms reported Past Medical History (General) - Patient Medical History Hx Seizures: No Hx Stroke: No Hx Dementia: No Hx Asthma: No Hx of COPD: No Hx Cardiac Disorders: No Hx Congestive Heart Failure: No Hx Pacemaker: No Hx Hypertension: No Hx Thyroid Disease: No Hx Diabetes: No Hx Gastroesophageal Reflux: Yes Hx Renal Disease: No Hx Cancer: No Hx of HIV: No Hx Hepatitis C: No Hx MRSA: No Surgical History: Hysterectomy - Vaccination History Hx Tetanus, Diphtheria Vaccination: No Hx Influenza Vaccination: No Hx Pneumococcal Vaccination: Yes - Social History Hx Tobacco Use: No Hx Chewing Tobacco Use: No Hx Alcohol Use: No Hx Substance Use: No Hx Substance Use Treatment: No Hx Depression: No Hx Physical Abuse: No Hx Emotional Abuse: No Hx Suspected Abuse: No - Female History Patient : No Family Medical History - Family History Father Living Status: Hx Cardiac Disease: Yes Hx Family Diabetes: Yes Mother Family History: Unknown Hx Family Hypertension: Yes Hx Family Diabetes: Yes Physical Exam - Physical Exam General Appearance: Alert, Comfortable Eye Exam: bilateral normal Ears, Nose, Throat: hearing grossly normal, normal ENT inspection, normal pharynx Neck: non-tender, full range of motion, supple Respiratory: chest non-tender, lungs clear, normal breath sounds, no respiratory distress, no accessory muscle use, respiratory distress Cardiovascular/Chest: normal peripheral pulses, regular rate, rhythm, no edema, no gallop, no JVD, no murmur Gastrointestinal/Abdominal: normal bowel sounds, non tender, soft, no organomegaly 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, no motor/sensory deficits, alert, normal mood/affect, oriented x 3 Progress - Results/Orders Results/Orders: Laboratory Tests 07/06/18 07/06/18 07/06/18 13:13 13:13 14:55 WBC 7.8 RBC 4.41 Hgb 12.3 Hct 38.0 MCV 86.0 MCH 27.8 MCHC 32.3 L RDW 23.9 H Plt Count 320 MPV 8.9 Absolute Neuts (auto) 5.30 Absolute Lymphs (auto) 1.90 Absolute Monos (auto) 0.40 Absolute Eos (auto) 0.10 Absolute Basos (auto) 0.10 Neutrophils % 68.1 Lymphocytes % 24.1 Monocytes % 5.0 Eosinophils % 1.8 Basophils % 1.0 Sodium 143 Potassium 3.7 Chloride 109 Carbon Dioxide 25 Anion Gap 12.7 BUN 19 H D Creatinine 0.52 L BUN/Creatinine Ratio 36.5 H Random Glucose 108 H Serum Osmolality 287.8 Calcium 9.1 Total Bilirubin 0.2 D AST 19 ALT 22 Alkaline Phosphatase 64 Serum Total Protein 7.1 Albumin 3.9 Globulin 3.2 Albumin/Globulin Ratio 1.2 Urine Color Yellow Urine Appearance Clear Urine pH 7.5 Ur Specific [place] 1.015 Urine Protein Negative Urine Glucose (UA) Negative Urine Ketones Negative Urine Blood Negative Urine Nitrite Negative Urine Bilirubin Negative Urine Urobilinogen 0.2 Ur Leukocyte Esterase Small H Urine RBC 0 Urine WBC 0 Ur Epithelial Cells 1-3 Amorphous Sediment Trace Urine Bacteria 0 Departure - Departure Clinical Impression: Myalgia Time of Disposition: 15:56 Disposition: Discharge to Home or Self Care Condition: Good Departure Forms: ED Discharge - Pt. Copy, Patient Portal Self Enrollment Diet: resume usual diet Referrals: Yemi Cardona MD [Primary Care Provider] - 1-2 Weeks Home Medications: Ambulatory Orders Esomeprazole Magnesium [Nexium] 40 mg PO DAILY 06/04/18 Gabapentin [Neurontin] 800 mg PO QID 06/04/18 Methadone HCl [Methadone] 10 mg PO BID 06/04/18 Micafungin Sodium [Mycamine] 100 mg IV DAILY 06/04/18 Tramadol HCl 50 mg PO Q6H PRN #1 tab 06/05/18
--- NOTE | 2018-07-06 13:33 | RAD ---
EXAM DESCRIPTION: Chest,1 View CLINICAL HISTORY: PENUMONIA COMPARISON: July 04, 2018 FINDINGS: Cardiac silhouette is within normal limits. There is no focal parenchymal or pleural disease. There is a hiatal hernia. There is no acute osseous process visualized. IMPRESSION: No evidence of acute cardiopulmonary disease. July 04, 2018 Electronically signed by: Primo Jain MD 07/06/2018 1:32 PM [facility]
[2018-07-06] MEDS ORDERED: KETOROLAC TROMETHAMINE INJ 60 MG/2 ML VIAL IM ONE (13:49)
[2018-07-06 14:12] VITALS: TEMP 99.8
[2018-07-06] MEDS ORDERED: HYDROcodone 10MG/APAP 325MG 1 EA TAB PO ONE (15:58)
[2018-07-06 16:12] VITALS: BP 137/100; O2SAT 99
== END 2018-07-06 16:14 | disposition home or self-care (01) ==
LOC: ER 12:34
DX: M79.10 Myalgia, unspecified site (principal); R53.1 Weakness; K21.9 Gastro-esophageal reflux disease without esophagitis; Z79.899 Other long term (current) drug therapy; Z88.1 Allergy status to other antibiotic agents
CPT/HCPCS: 36415; 71045; 80053; 81001; 85025; 87040; 87086; 87502; J1885

== ENCOUNTER 2018-07-15 17:32 | Emergency (ER) | payer SELFPAY ==
[2018-07-15 17:49] VITALS: O2SAT 98
--- NOTE | 2018-07-15 19:08 | ED.PDOC ---
History of Present Illness - General Chief Complaint: Fever Time Seen by Provider: 07/15/18 18:10 Source: patient, family Exam Limitations: no limitations - History of Present Illness Initial Comments: THIS MORNING, PT AT USUAL STATE OF HEALTH. AFTER WORK THIS EVENING, NOTICED SHE WAS NOT ALERT USUAL, MILD AMS. PT WAS HOSPITALIZED PRIOR TO [facility] FOR 2 WKS FOR RECENT PNE AND (AND BACTEREMIA, PER ). ALSO GIVEN 2 UNITS PRBC. STATES SHE HAS NOT REGAINED FULL HEALTH YET. Severity: moderate Improving Factors: nothing Worsening Factors: nothing Associated Symptoms: denies symptoms Allergies/Adverse Reactions: Allergies Clindamycin Allergy (Verified 06/04/18 10:23) Vomitting Home Medications: Ambulatory Orders Esomeprazole Magnesium [Nexium] 40 mg PO DAILY 06/04/18 Gabapentin [Neurontin] 800 mg PO QID 06/04/18 Methadone HCl [Methadone] 10 mg PO BID 06/04/18 Alprazolam [Xanax] 1 mg PO BEDTIME 07/15/18 Amoxicillin & Pot Clavulanate [Augmentin] 875 mg PO BID #20 tab 07/15/18 Citalopram Hydrobromide [Celexa] 40 mg PO BID 07/15/18 Review of Systems - Review of Systems Constitutional: States: no symptoms reported EENTM: States: no symptoms reported Respiratory: States: no symptoms reported Cardiology: States: no symptoms reported Gastrointestinal/Abdominal: States: no symptoms reported Genitourinary: States: no symptoms reported Musculoskeletal: States: no symptoms reported Skin: States: no symptoms reported Neurological: States: no symptoms reported Endocrine: States: no symptoms reported Hematologic/Lymphatic: States: no symptoms reported All other Systems: Reviewed and Negative - PT STATES SHE FEELS LIKE HER USUAL SELF. Past Medical History (General) - Patient Medical History Hx Seizures: No Hx Stroke: No Hx Dementia: No Hx Asthma: No Hx of COPD: No Hx Cardiac Disorders: No Hx Congestive Heart Failure: No Hx Pacemaker: No Hx Hypertension: No Hx Thyroid Disease: No Hx Diabetes: No Hx Gastroesophageal Reflux: Yes Hx Renal Disease: No Hx Cancer: No Hx of HIV: No Hx Hepatitis C: No Hx MRSA: No Surgical History: Hysterectomy - Vaccination History Hx Tetanus, Diphtheria Vaccination: No Hx Influenza Vaccination: Yes - 2018 Hx Pneumococcal Vaccination: Yes - Social History Hx Tobacco Use: No Hx Chewing Tobacco Use: No Hx Alcohol Use: No Hx Substance Use: No Hx Substance Use Treatment: No Hx Depression: No Hx Physical Abuse: No Hx Emotional Abuse: No Hx Suspected Abuse: No - Female History Patient : No Family Medical History - Family History Father Living Status: Hx Cardiac Disease: Yes Hx Family Diabetes: Yes Mother Family History: Unknown Hx Family Hypertension: Yes Hx Family Diabetes: Yes Physical Exam - Physical Exam General Appearance: Alert, No apparent distress Eye Exam: bilateral normal Ears, Nose, Throat: hearing grossly normal, normal ENT inspection Neck: non-tender, full range of motion Respiratory: no respiratory distress, no accessory muscle use, rhonchi Cardiovascular/Chest: normal peripheral pulses, regular rate, rhythm, no murmur Peripheral Pulses: radial,right: 1+, radial,left: 1+ Gastrointestinal/Abdominal: normal bowel sounds, non tender, soft, no organomegaly, no pulsatile mass Back Exam: normal inspection, no CVA tenderness Extremity: normal range of motion, normal inspection, no pedal edema 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 UA POS FOR PROTEIN AND KETONES - DEHYDRATED. BOLUS. WBC 14.3, NEUTS HIGH. HGB 10.9 CMP - K+ 3. GIVE PO. CXR NEG BUT RONCHI ON EXAM, THUS BRONCHITIS. COULD BE VIRAL BUT PT RECENTLY HOSPITALIZED FOR 2 WKS FOR IFXN THUS RX AUGMENTIN. ROCEPHIN IV IN ER. Departure - Departure Clinical Impression: Bronchitis, Ketonuria, Neutrophilic leukocytosis, Hypokalemia, Tachycardia with heart rate 100-120 beats per minute Proteinuria Qualifiers: Proteinuria type: unspecified Qualified Code(s): R80.9 - Proteinuria, unspecified Anemia Qualifiers: Anemia type: unspecified type Qualified Code(s): D64.9 - Anemia, unspecified Disposition: Discharge to Home or Self Care Condition: Good Departure Forms: ED Discharge - Pt. Copy, Patient Portal Self Enrollment Instructions: Acute Bronchitis, Adult (DC) Diet: resume usual diet Activity: increase activity as tolerated Referrals: Yemi Cardona MD [Primary Care Provider] - 1-2 Weeks Prescriptions: Amoxicillin & Pot Clavulanate [Augmentin] 875 mg PO BID #20 tab Home Medications: Ambulatory Orders Esomeprazole Magnesium [Nexium] 40 mg PO DAILY 06/04/18 Gabapentin [Neurontin] 800 mg PO QID 06/04/18 Methadone HCl [Methadone] 10 mg PO BID 06/04/18 Alprazolam [Xanax] 1 mg PO BEDTIME 07/15/18 Amoxicillin & Pot Clavulanate [Augmentin] 875 mg PO BID #20 tab 07/15/18 Citalopram Hydrobromide [Celexa] 40 mg PO BID 07/15/18 Additional Instructions: You have bronchitis (lung infection) and are a little dehydrated. Please take the 10 days of antibiotics, drink plenty of fluids, and get a lot of rest.
--- NOTE | 2018-07-15 19:31 | RAD ---
EXAM DESCRIPTION: Chest,1 View CLINICAL HISTORY: 53 years Female, AMS, rhonchi per lung exam. Comparison: 07/06/2018 and 07/04/2018 FINDINGS: Single AP view of the chest. Cardiomediastinal silhouette is within normal limits. Retrocardiac density consistent with a hiatal hernia, similar to previous studies. No focal lung consolidation. No pleural effusion. No pneumothorax. No acute osseous finding. IMPRESSION: No acute chest finding. 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
[2018-07-15] MEDS ORDERED: POTASSIUM CHLORIDE 20 MEQ TAB PO ONE (20:57)
[2018-07-15] MEDS ORDERED: cefTRIAXone SODIUM 1 GM in SODIUM CHL 0.9% 50ML MIN-BAG+ 50 ML IVPB ONE (20:57)
[2018-07-15] MEDS ORDERED: SODIUM CHLORIDE 0.9% 1000ML 1,000 ML IVS ONE (20:57)
[2018-07-15] MEDS ORDERED: cefTRIAXone SODIUM 1 GM VIAL ONE (21:16)
[2018-07-15] MEDS ORDERED: SODIUM CHL 0.9% 50ML MIN-BAG+ 50 ML IVPB ONE (21:16)
[2018-07-15 21:44] VITALS: BP 108/85; TEMP 98.7
== END 2018-07-15 21:43 | disposition home or self-care (01) ==
LOC: ER 17:32
DX: J40 Bronchitis, not specified as acute or chronic (principal); R80.9 Proteinuria, unspecified; D64.9 Anemia, unspecified; R82.4 Acetonuria; D72.828 Other elevated white blood cell count; R00.0 Tachycardia, unspecified; E87.6 Hypokalemia; R41.82 Altered mental status, unspecified; K21.9 Gastro-esophageal reflux disease without esophagitis; Z79.899 Other long term (current) drug therapy; Z88.1 Allergy status to other antibiotic agents
CPT/HCPCS: 36415; 71045; 80053; 81001; 85025; 87040; 93005; J0696; J7030; J7050

== ENCOUNTER 2018-07-31 11:30 | Emergency (ER) | payer SELFPAY ==
--- NOTE | 2018-07-31 12:03 | ED.PDOC ---
History of Present Illness - General Chief Complaint: GI Problem Stated Complaint: Throwing up x 4 days Time Seen by Provider: 07/31/18 11:44 Source: patient Exam Limitations: no limitations - History of Present Illness Initial Comments: Patient presents with tiredness for 4 days. She also had N/V yesterday and non- bloody diarrhea yesterday. She has chronic anemia and she says that it feels similar to when she has anemia. She says that physicians have not found a reason for the anemia. She denies abdominal pain/sore throat/fever. She has had back pain along with this illness. She has a contact who has influenza. No other complaints. Timing/Duration: other - 4 days Severity: mild Improving Factors: nothing Worsening Factors: nothing Associated Symptoms: other - as in HPI Allergies/Adverse Reactions: Allergies Clindamycin Allergy (Verified 06/04/18 10:23) Vomitting Home Medications: Ambulatory Orders Esomeprazole Magnesium [Nexium] 40 mg PO DAILY 06/04/18 Gabapentin [Neurontin] 800 mg PO QID 06/04/18 Methadone HCl [Methadone] 10 mg PO BID 06/04/18 Alprazolam [Xanax] 1 mg PO BEDTIME 07/15/18 Amoxicillin & Pot Clavulanate [Augmentin] 875 mg PO BID #20 tab 07/15/18 Citalopram Hydrobromide [Celexa] 40 mg PO BID 07/15/18 Review of Systems - Review of Systems Constitutional: States: weakness EENTM: States: no symptoms reported Respiratory: States: no symptoms reported Cardiology: States: no symptoms reported Gastrointestinal/Abdominal: States: see HPI Genitourinary: States: no symptoms reported Musculoskeletal: States: see HPI Skin: States: no symptoms reported Neurological: States: no symptoms reported Endocrine: States: no symptoms reported Hematologic/Lymphatic: States: no symptoms reported Past Medical History (General) - Patient Medical History Hx Seizures: No Hx Stroke: No Hx Dementia: No Hx Asthma: No Hx of COPD: No Hx Cardiac Disorders: No Hx Congestive Heart Failure: No Hx Pacemaker: No Hx Hypertension: No Hx Thyroid Disease: No Hx Diabetes: No Hx Gastroesophageal Reflux: Yes Hx Renal Disease: No Hx Cancer: No Hx of HIV: No Hx Hepatitis C: No Hx MRSA: No - Vaccination History Hx Tetanus, Diphtheria Vaccination: No Hx Influenza Vaccination: Yes - 2018 Hx Pneumococcal Vaccination: Yes - Social History Hx Tobacco Use: No Hx Chewing Tobacco Use: No Hx Alcohol Use: No Hx Substance Use: No Hx Substance Use Treatment: No Hx Depression: No Hx Physical Abuse: No Hx Emotional Abuse: No Hx Suspected Abuse: No - Female History Patient : No Family Medical History - Family History Father Living Status: Hx Cardiac Disease: Yes Hx Family Diabetes: Yes Mother Family History: Unknown Hx Family Hypertension: Yes Hx Family Diabetes: Yes Physical Exam - Physical Exam General Appearance: Alert Eye Exam: bilateral normal Ears, Nose, Throat: normal ENT inspection Neck: non-tender, full range of motion, supple Respiratory: lungs clear, normal breath sounds Cardiovascular/Chest: normal peripheral pulses, regular rate, rhythm, no edema Gastrointestinal/Abdominal: normal bowel sounds, non tender, soft Back Exam: normal inspection, no CVA tenderness Extremity: normal range of motion, non-tender, normal inspection Neurologic: no motor/sensory deficits, alert, normal mood/affect, oriented x 3 Skin Exam: other - conjunctiva are pale bilaterally Lymphatic: no adenopathy Progress - Progress Progress: 07/31/18 14:58 Laboratory Tests 07/31/18 07/31/18 07/31/18 12:05 12:05 12:05 WBC 8.2 RBC 4.67 Hgb 12.9 Hct 40.0 MCV 85.5 MCH 27.6 MCHC 32.2 L RDW 19.1 H Plt Count 432 H MPV 9.0 Absolute Neuts (auto) 5.00 Absolute Lymphs (auto) 2.40 Absolute Monos (auto) 0.70 Absolute Eos (auto) 0.00 Absolute Basos (auto) 0.10 Neutrophils % 61.1 Lymphocytes % 29.3 Monocytes % 8.2 Eosinophils % 0.5 L Basophils % 0.9 Sodium 135 Potassium 4.1 Chloride 101 Carbon Dioxide 21 Anion Gap 17.1 BUN 26 H Creatinine 0.63 BUN/Creatinine Ratio 41.3 H Random Glucose 100 Serum Osmolality 274.9 L Calcium 9.6 Total Bilirubin 0.4 AST 21 ALT 20 Alkaline Phosphatase 95 Serum Total Protein 7.6 Albumin 4.5 Globulin 3.1 Albumin/Globulin Ratio 1.5 Lipase 47 There is no laboratory explanation for the patients N/V. She was given Toradol 30 mg IM and Norflex 60 mg IM for the back pain and it improved. She refused to give a urine sample and did not want IV rehydration. Care instructions given. E.R. warnings given. Questions were elicited and answered. Patient voiced understanding and agreement with the plan. 07/31/18 14:58 Departure - Departure Clinical Impression: Nausea & vomiting, Diarrhea Disposition: Discharge to Home or Self Care Condition: Good Departure Forms: ED Discharge - Pt. Copy, Patient Portal Self Enrollment Instructions: Nausea and Vomiting, Adult (DC), Diarrhea and Traveler's Diarrhea, Adult (DC) Diet: resume usual diet Activity: increase activity as tolerated Referrals: Yemi Cardona MD [Primary Care Provider] - 1-2 Weeks Home Medications: Ambulatory Orders Esomeprazole Magnesium [Nexium] 40 mg PO DAILY 06/04/18 Gabapentin [Neurontin] 800 mg PO QID 06/04/18 Methadone HCl [Methadone] 10 mg PO BID 06/04/18 Alprazolam [Xanax] 1 mg PO BEDTIME 07/15/18 Amoxicillin & Pot Clavulanate [Augmentin] 875 mg PO BID #20 tab 07/15/18 Citalopram Hydrobromide [Celexa] 40 mg PO BID 07/15/18 Additional Instructions: Increase oral fluids. See your regular doctor if vomiting continues more than two more days or if diarrhea continues more than another week.
[2018-07-31] MEDS ORDERED: ORPHENADRINE CITRATE 30 MG/ML AMP IV ONE (12:40)
[2018-07-31] MEDS ORDERED: KETOROLAC TROMETHAMINE INJ 30 MG/ML VIAL IV ONE (12:40)
[2018-07-31 12:43] VITALS: O2SAT 98
[2018-07-31] MEDS ORDERED: KETOROLAC TROMETHAMINE INJ 30 MG/ML VIAL IM ONE (13:31)
[2018-07-31] MEDS ORDERED: ORPHENADRINE CITRATE 30 MG/ML AMP IM ONE (13:31)
[2018-07-31] MEDS ORDERED: SODIUM CHLORIDE 0.9% 1000ML 1,000 ML IVS ONE (14:50)
[2018-07-31 15:22] VITALS: BP 135/97; TEMP 96.1
== END 2018-07-31 15:22 | disposition home or self-care (01) ==
LOC: ER 11:30
DX: R11.2 Nausea with vomiting, unspecified (principal); R19.7 Diarrhea, unspecified; D64.9 Anemia, unspecified; K21.9 Gastro-esophageal reflux disease without esophagitis; Z79.899 Other long term (current) drug therapy; Z88.1 Allergy status to other antibiotic agents
CPT/HCPCS: 36415; 80053; 83690; 85025; 87502; J1885; J2360

== ENCOUNTER 2018-08-29 19:13 | Emergency (ER) | payer SELFPAY ==
[2018-08-29 19:49] VITALS: TEMP 97
[2018-08-29] MEDS ORDERED: SODIUM CHLORIDE 0.9% 1000ML 1,000 ML IVS ONE (19:56)
--- NOTE | 2018-08-29 20:14 | RAD ---
EXAM DESCRIPTION: Chest,2 Views CLINICAL HISTORY:53 years Female, cough, syncope Comparison: July 15, 2018 FINDINGS: No focal lung consolidation. Small to moderate hiatal hernia No pleural effusion. No pneumothorax. Cardiac and mediastinal silhouette is unremarkable. No acute osseous abnormality. Soft tissues are unremarkable. IMPRESSION: No acute findings. No focal lung consolidation. Small to moderate hiatal hernia Electronically signed by: Wolf Trevino MD 08/29/2018 8:11 PM CDT
[2018-08-29] MEDS ORDERED: SULFA/TRIMETH 800/160 (DS) TAB 1 EA TAB PO ONE (20:45)
[2018-08-29 21:15] VITALS: O2SAT 98
--- NOTE | 2018-08-29 21:30 | ED.PDOC ---
History of Present Illness - General Chief Complaint: Syncope/Near Syncope Stated Complaint: Syncope, generalized weakness Time Seen by Provider: 08/29/18 19:17 Source: patient, family Exam Limitations: no limitations - History of Present Illness Initial Comments: Patient presents from home after having a syncopal event that lasted about 2 seconds. Her says that she said that she felt like fainting and he lowered her to the ground. She has been feeling weak recently. She has a history of anemia and takes Methadone for narcotic addiction as well as gabapenting for pain. She has been sleeping more recently No other complaints. Timing/Duration: resolved prior to arrival Severity: mild Improving Factors: nothing Worsening Factors: nothing Associated Symptoms: other - as in HPI Allergies/Adverse Reactions: Allergies Clindamycin Allergy (Verified 06/04/18 10:23) Vomitting Home Medications: Ambulatory Orders Esomeprazole Magnesium [Nexium] 40 mg PO DAILY 06/04/18 Gabapentin [Neurontin] 800 mg PO QID 06/04/18 Methadone HCl [Methadone] 10 mg PO BID 06/04/18 Alprazolam [Xanax] 1 mg PO BEDTIME 07/15/18 Amoxicillin & Pot Clavulanate [Augmentin] 875 mg PO BID #20 tab 07/15/18 Citalopram Hydrobromide [Celexa] 40 mg PO BID 07/15/18 Sulfa/Trimeth 800/160 (Ds) Tab [Bactrim DS] 1 tablet PO BID #5 tab 08/29/18 Review of Systems - Review of Systems Constitutional: States: no symptoms reported EENTM: States: no symptoms reported Respiratory: States: no symptoms reported Cardiology: States: no symptoms reported Gastrointestinal/Abdominal: States: no symptoms reported Genitourinary: States: no symptoms reported Musculoskeletal: States: no symptoms reported Skin: States: no symptoms reported Neurological: States: see HPI Endocrine: States: no symptoms reported Hematologic/Lymphatic: States: no symptoms reported Past Medical History (General) - Patient Medical History Hx Seizures: No Hx Stroke: No Hx Dementia: No Hx Asthma: No Hx of COPD: No Hx Cardiac Disorders: No Hx Congestive Heart Failure: No Hx Pacemaker: No Hx Hypertension: No Hx Thyroid Disease: No Hx Diabetes: No Hx Gastroesophageal Reflux: Yes Hx Renal Disease: No Hx Cancer: No Hx of HIV: No Hx Hepatitis C: No Hx MRSA: No Surgical History: Hysterectomy - Vaccination History Hx Tetanus, Diphtheria Vaccination: Yes Hx Influenza Vaccination: Yes - 2018 Hx Pneumococcal Vaccination: Yes Immunizations Up to Date: Yes - Social History Hx Tobacco Use: No Hx Chewing Tobacco Use: No Hx Alcohol Use: No Hx Substance Use: No Hx Substance Use Treatment: No Hx Depression: No Feels Threatened In Home Enviroment: No Feels Threatened In a Relationship: No Hx Physical Abuse: No Hx Emotional Abuse: No Hx Suspected Abuse: No - Activities of Daily Living Hospice Agency (if applicable):: None - Female History Patient is a Female of Child Bearing Age (10 -59 yrs old): Yes - hx of hysterectomy Patient : No - Triage Comment ED Triage Comment: pt has sluggish response, hard or hearing Family Medical History - Family History Father Living Status: Hx Cardiac Disease: Yes Hx Family Diabetes: Yes Mother Family History: Unknown Living Status: Unknown Hx Family Hypertension: Yes Hx Family Diabetes: Yes Physical Exam - Physical Exam General Appearance: Alert Eye Exam: bilateral normal Ears, Nose, Throat: normal ENT inspection Neck: non-tender, full range of motion, supple Respiratory: lungs clear, normal breath sounds Cardiovascular/Chest: normal peripheral pulses, regular rate, rhythm Gastrointestinal/Abdominal: normal bowel sounds, non tender, soft Back Exam: normal inspection, no CVA tenderness Extremity: normal range of motion, non-tender, normal inspection 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, no motor/sensory deficits, alert, normal mood/affect, oriented x 3 Skin Exam: normal color Lymphatic: no adenopathy Progress - Progress Progress: 08/29/18 21:31 Laboratory Tests 08/29/18 08/29/18 08/29/18 19:20 19:25 19:26 WBC 7.2 RBC 4.25 Hgb 11.5 L Hct 35.3 L MCV 83.1 MCH 26.9 L MCHC 32.4 L RDW 16.4 H Plt Count 406 H MPV 8.4 Absolute Neuts (auto) 3.10 Absolute Lymphs (auto) 3.20 Absolute Monos (auto) 0.70 Absolute Eos (auto) 0.20 Absolute Basos (auto) 0.10 Neutrophils % 43.5 Lymphocytes % 44.1 Monocytes % 9.1 H Eosinophils % 2.3 Basophils % 1.0 Sodium 139 Potassium 3.5 L Chloride 103 Carbon Dioxide 24 Anion Gap 15.5 BUN 20 H Creatinine 0.85 BUN/Creatinine Ratio 23.5 H POC Glucose 124 H Random Glucose 134 H Serum Osmolality 282.1 Calcium 9.6 Total Bilirubin 0.3 AST 18 ALT 13 Alkaline Phosphatase 71 Serum Total Protein 7.4 Albumin 4.2 Globulin 3.2 Albumin/Globulin Ratio 1.3 TSH Thyroxine (T4) Urine Color Urine Appearance Urine pH Ur Specific Rebuck Urine Protein Urine Glucose (UA) Urine Ketones Urine Blood Urine Nitrite Urine Bilirubin Urine Urobilinogen Ur Leukocyte Esterase Urine RBC Urine WBC Ur Epithelial Cells Urine Bacteria Urine Mucus Urine Opiates Screen Urine Barbiturates Ur Phencyclidine Scrn U Amphetamin/Meth Scrn U Benzodiazepines Scrn U Cocaine Metab Screen U Cannabinoids Screen 08/29/18 08/29/18 08/29/18 19:26 19:26 20:11 WBC RBC Hgb Hct MCV MCH MCHC RDW Plt Count MPV Absolute Neuts (auto) Absolute Lymphs (auto) Absolute Monos (auto) Absolute Eos (auto) Absolute Basos (auto) Neutrophils % Lymphocytes % Monocytes % Eosinophils % Basophils % Sodium Potassium Chloride Carbon Dioxide Anion Gap BUN Creatinine BUN/Creatinine Ratio POC Glucose Random Glucose Serum Osmolality Calcium Total Bilirubin AST ALT Alkaline Phosphatase Serum Total Protein Albumin Globulin Albumin/Globulin Ratio TSH 2.77 Thyroxine (T4) 5.06 L Urine Color Yellow Urine Appearance Clear Urine pH 5.5 Ur Specific Rebuck >= 1.030 Urine Protein 30 Urine Glucose (UA) Negative Urine Ketones Negative Urine Blood Negative Urine Nitrite Negative Urine Bilirubin Negative Urine Urobilinogen 0.2 Ur Leukocyte Esterase Trace H Urine RBC 1-3 Urine WBC 10-20 H Ur Epithelial Cells 5-10 Urine Bacteria 1+ Urine Mucus Moderate Urine Opiates Screen Negative Urine Barbiturates Negative Ur Phencyclidine Scrn Positive H U Amphetamin/Meth Scrn Negative U Benzodiazepines Scrn Positive H U Cocaine Metab Screen Negative U Cannabinoids Screen Negative Laboratory findings indicate dehydration. Neurological exam was normal. Patient was tachycardic upon presentation. Her heart rate normalized after one liter NS IV bolus. A mild UTI was discovered and she was given Bactrim DS x one in the E.D. RX for 5 more doses provided. Her syncope is likely due to dehydration possibly in combination with the neurodepressants that she is taking. She was instructed to drink more fluids and see her pcp for possible medication adjustment. Care instructions given. E.R. warnings given. Questions were elicited and answered. Patient voiced understanding and agreement with the plan. - EKG/XRAY/CT CT Ordered: No Departure - Departure Clinical Impression: Syncope Disposition: Discharge to Home or Self Care Condition: Good Departure Forms: ED Discharge - Pt. Copy, Patient Portal Self Enrollment Instructions: DI for Syncope in Adults (Fainting), Dehydration, Adult (DC) Diet: other - increase oral fluids Activity: increase activity as tolerated Referrals: Yemi Cardona MD [Primary Care Provider] - 1-2 Weeks Prescriptions: Sulfa/Trimeth 800/160 (Ds) Tab [Bactrim DS] 1 tablet PO BID #5 tab Home Medications: Ambulatory Orders Esomeprazole Magnesium [Nexium] 40 mg PO DAILY 06/04/18 Gabapentin [Neurontin] 800 mg PO QID 06/04/18 Methadone HCl [Methadone] 10 mg PO BID 06/04/18 Alprazolam [Xanax] 1 mg PO BEDTIME 07/15/18 Amoxicillin & Pot Clavulanate [Augmentin] 875 mg PO BID #20 tab 07/15/18 Citalopram Hydrobromide [Celexa] 40 mg PO BID 07/15/18 Sulfa/Trimeth 800/160 (Ds) Tab [Bactrim DS] 1 tablet PO BID #5 tab 08/29/18 Additional Instructions: Drink more fluids. See your regular doctor about possible adjustments in your medications. Return to the E.R. if symptoms recur.
[2018-08-29 21:48] VITALS: BP 112/77
== END 2018-08-29 21:48 | disposition home or self-care (01) ==
LOC: ER 19:13
DX: R55 Syncope and collapse (principal); N39.0 Urinary tract infection, site not specified; F11.20 Opioid dependence, uncomplicated; K21.9 Gastro-esophageal reflux disease without esophagitis; Z86.2 Personal history of diseases of the blood and blood-forming organs and certain disorders involving the immune mechanism; Z79.899 Other long term (current) drug therapy; Z79.891 Long term (current) use of opiate analgesic; Z88.1 Allergy status to other antibiotic agents
CPT/HCPCS: 36415; 71046; 80053; 80307; 81001; 82948; 84436; 84443; 85025; 87086; 93005; J7030

== ENCOUNTER 2019-06-04 10:16 | Emergency (ER) | payer SELFPAY ==
[2019-06-04] MEDS ORDERED: IPRATROPIUM/ALBUTEROL 3 ML VIAL NEB ONE ×2 (10:22→10:23)
[2019-06-04] MEDS ORDERED: SODIUM CHLORIDE 0.9% 1000ML 1,000 ML IVS ONE (10:24)
[2019-06-04] MEDS ORDERED: ONDANSETRON INJ 4 MG/2 ML VIAL IV ONE (10:24)
[2019-06-04] MEDS ORDERED: cefTRIAXone SODIUM 1 GM in SODIUM CHL 0.9% 50ML MIN-BAG+ 50 ML IVPB ONE (10:26)
[2019-06-04] MEDS ORDERED: methylPREDNISolone SODIUM SUC 125 MG/2 ML VIAL IV ONE (10:26)
[2019-06-04] MEDS ORDERED: cefTRIAXone SODIUM 1 GM VIAL ONE (10:44)
[2019-06-04] MEDS ORDERED: SODIUM CHL 0.9% 50ML MIN-BAG+ 50 ML IVPB ONE (10:45)
[2019-06-04] MEDS ORDERED: PANTOPRAZOLE SODIUM IV 40 MG VIAL IV ONE (10:50)
--- NOTE | 2019-06-04 11:56 | RAD ---
1 radiographic chest. 2. Radiographs of the Abdomen. Indication: nv, sob, ams Comparison: None. Impression: Cardiomegaly. Patchy bibasilar consolidation, left greater than right. Follow-up to resolution recommended. Tiny left pleural effusion suspected. No pneumothorax. No free air. Mild constipation without obstruction. Hiatal hernia suspected. No abnormal calcifications. No acute osseous abnormality. Electronically signed by: Jose L Sawyer MD 06/04/2019 11:54 AM ASSISTED LIVING DIRECTOR
[2019-06-04] MEDS ORDERED: metroNIDAZOLE IV PREMIX 500MG 500 MG in PREMIX BAG 1 BAG IVPB ONE (12:04)
--- NOTE | 2019-06-04 12:33 | ED.PDOC ---
History of Present Illness - General Chief Complaint: Respiratory Problem Stated Complaint: Difficulty breathing, lethargic Time Seen by Provider: 06/04/19 10:18 Source: patient, other Exam Limitations: clinical condition - History of Present Illness Initial Comments: the patient is a 54-year-old female presenting to the emergency room secondary to respiratory distress and confusion. The patient was apparently up a better part of the night with vomiting. The patient was apparently found by her neighbor with her oxygen off. She is supposed to wear oxygen all the time. Oxygen saturations were in the mid 70s without oxygen here. The patient does have some dried blood around her lips. The patient does have a history of long- standing anemia. She has had transfusions in the past. She reports that she has had endoscopies in the past with someone in [place] which she does not remember who. The patient does have a large hiatal hernia. She also has r heumatoid arthritis and rheumatoid lung. She has apparently had multiple aspiration pneumonias in the past. She reports that she did do a breathing treatment this morning. The patient does mentate a little better after oxygen levels are corrected. She does slur her speech. She does know where she is. It is difficult however get more accurate information from her at this time. No evidence of abdominal pain palpation. She has coarse rales and rhonchi bilaterally. She is significantly tachypneic. she is obviously in respiratory distress upon arrival. She is pale. Timing/Duration: other - 8 hours approximately Severity: severe Improving Factors: nothing Worsening Factors: nothing Associated Symptoms: cough, malaise, nausea/vomiting, shortness of breath, weakness Allergies/Adverse Reactions: Allergies Clindamycin Allergy (Verified 06/04/18 10:23) Vomitting Home Medications: Ambulatory Orders Esomeprazole Magnesium [Nexium] 40 mg PO DAILY 06/04/18 Gabapentin [Neurontin] 800 mg PO QID 06/04/18 Methadone HCl [Methadone] 10 mg PO BID 06/04/18 Alprazolam [Xanax] 1 mg PO BEDTIME 07/15/18 Amoxicillin & Pot Clavulanate [Augmentin] 875 mg PO BID #20 tab 07/15/18 Citalopram Hydrobromide [Celexa] 40 mg PO BID 07/15/18 Sulfa/Trimeth 800/160 (Ds) Tab [Bactrim DS] 1 tablet PO BID #5 tab 08/29/18 Review of Systems - Review of Systems Constitutional: States: malaise, weakness EENTM: States: no symptoms reported Respiratory: States: cough, short of breath Cardiology: States: no symptoms reported Gastrointestinal/Abdominal: States: nausea, vomiting Genitourinary: States: no symptoms reported Musculoskeletal: States: no symptoms reported Skin: States: no symptoms reported Neurological: States: see HPI Endocrine: States: no symptoms reported All other Systems: No Change from Baseline Past Medical History (General) - Patient Medical History Hx Seizures: No Hx Stroke: No Hx Dementia: No Hx Asthma: No Hx of COPD: No Hx Cardiac Disorders: No Hx Congestive Heart Failure: No Hx Pacemaker: No Hx Hypertension: No Hx Thyroid Disease: No Hx Diabetes: No Hx Gastroesophageal Reflux: Yes Hx Renal Disease: No Hx Cancer: No Hx of HIV: No Hx Hepatitis C: No Hx MRSA: No - Vaccination History Hx Tetanus, Diphtheria Vaccination: Yes Hx Influenza Vaccination: Yes - 2018 Hx Pneumococcal Vaccination: Yes - Social History Hx Tobacco Use: No Hx Chewing Tobacco Use: No Hx Alcohol Use: No Hx Substance Use: No Hx Substance Use Treatment: No Hx Depression: No Hx Physical Abuse: No Hx Emotional Abuse: No Hx Suspected Abuse: No - Female History Patient : No Family Medical History - Family History Father Living Status: Hx Cardiac Disease: Yes Hx Family Diabetes: Yes Mother Family History: Unknown Living Status: Unknown Hx Family Hypertension: Yes Hx Family Diabetes: Yes Physical Exam - Physical Exam General Appearance: Alert - easily confused. She does have significant delirium. She is in obvious distress., Obvious distress, Ill Appearing Eye Exam: bilateral normal - extremely pale Ears, Nose, Throat: hearing grossly normal, nasal congestion, other - dried blood in the oropharynx. 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 Skin Exam: pallor Lymphatic: no adenopathy Comments: Vital Signs - 24 hr 06/04/19 06/04/19 06/04/19 10:16 10:24 11:24 Temperature 98.2 F Pulse Rate 134 H 134 H Pulse Rate [ 133 H 67 Right Radial] Respiratory 60 H 32 H 60 H Rate Blood Pressure 114/68 113/47 [Right Arm] O2 Sat by Pulse 76 L 95 92 L Oximetry Progress - Progress Progress: 06/04/19 12:42 the patient is a 54-year-old female presenting to emergency room secondary to what appears to be bilateral lower lobe pneumonia that may be aspiration in nature. She has received a dose of Rocephin and metronidazole. Additionally the patient was in respiratory distress upon arrival. She has been on a nonrebreather and has received a breathing treatment and does seem to be improving. Delirium also seems to be improving with a liter of fluids and supplemental oxygen. The patient is in significant need of a blood transfusion however she has a significant antibody and we are unable to match her blood here. she did receive a dose of Solu-Medrol here. The patient is going to be transferred in all due haste in order to receive blood at the receiving facility. No evidence of continued blood output since her arrival here. Vital signs are improving. she did receive a dose of IV Protonix. The patient is being transferred for higher level of care. Obviously GI evaluation would be warranted sooner rather than later. Additional imaging of the abdomen may also be warranted once the patient has received some blood to stabilize the renal function. Critical care time spent on this patient is 40 minutes excluding otherwise billable procedures. - Results/Orders Results/Orders: chest x-ray shows bilateral lower lobe infiltrates with a left worse than the right. Chronic changes as well. See report for details. 06/04/19 10:30 EKG STAT EKG shows sinus tachycardia 131 bpm. Normal axis. No definitively ST or T-wave changes indicative of ischemia however there is significant baseline wander. Prolonged QT interval. Normal R-wave progression. Laboratory Results - last 24 hr 06/04/19 06/04/19 06/04/19 10:23 11:15 11:15 WBC 16.2 H RBC 2.46 L Hgb 4.5 L* Hct 15.8 L MCV 64.2 L MCH 18.3 L MCHC 28.4 L RDW 23.9 H Plt Count 447 H MPV 8.3 Absolute Neuts (auto) 15.60 H Absolute Lymphs (auto) 0.20 L Absolute Monos (auto) 0.30 Absolute Eos (auto) 0.00 Absolute Basos (auto) 0.00 Neutrophils % 96.4 H Lymphocytes % 1.3 L Monocytes % 2.0 Eosinophils % 0.0 L Basophils % 0.3 Normal RBC Morphology Stain quality accept PT INR PTT (SP) D-Dimer, Quantitative Sodium 137 Potassium 3.9 Chloride 106 Carbon Dioxide 21 Anion Gap 13.9 BUN 29 H Creatinine 0.95 BUN/Creatinine Ratio 30.5 H Random Glucose 227 H Serum Osmolality 286.8 Lactic Acid 4.5 H* Calcium 8.3 L Magnesium 1.7 L Total Bilirubin 0.4 AST 20 ALT 12 Alkaline Phosphatase 49 Creatine Kinase 32 CK-MB (CK-2) 0.5 CK-MB (CK-2) % Not Reportable Troponin I 0.02 B-Natriuretic Peptide 18.8 Serum Total Protein 6.1 L Albumin 3.2 Globulin 2.9 Albumin/Globulin Ratio 1.1 Serum HCG, Qual Crossmatch 06/04/19 06/04/19 06/04/19 11:15 11:15 11:15 WBC RBC Hgb Hct MCV MCH MCHC RDW Plt Count MPV Absolute Neuts (auto) Absolute Lymphs (auto) Absolute Monos (auto) Absolute Eos (auto) Absolute Basos (auto) Neutrophils % Lymphocytes % Monocytes % Eosinophils % Basophils % Normal RBC Morphology PT 11.2 H INR 1.12 PTT (SP) 20.5 L D-Dimer, Quantitative 0.74 H* Sodium Potassium Chloride Carbon Dioxide Anion Gap BUN Creatinine BUN/Creatinine Ratio Random Glucose Serum Osmolality Lactic Acid Calcium Magnesium Total Bilirubin AST ALT Alkaline Phosphatase Creatine Kinase CK-MB (CK-2) CK-MB (CK-2) % Troponin I B-Natriuretic Peptide Serum Total Protein Albumin Globulin Albumin/Globulin Ratio Serum HCG, Qual Negative Crossmatch See Detail Departure - Departure Clinical Impression: Respiratory distress, Upper GI bleed, Symptomatic anemia, Delirium Aspiration pneumonia Qualifiers: Aspiration pneumonia type: unspecified Laterality: bilateral Lung location: lower lobe of lung Qualified Code(s): J69.0 - Pneumonitis due to inhalation of food and vomit Disposition: Transfer to Hospital Departure Forms: ED Discharge - Pt. Copy, Patient Portal Self Enrollment Referrals: Yemi Cardona MD [Primary Care Provider] - 1-2 Weeks Home Medications: Ambulatory Orders Esomeprazole Magnesium [Nexium] 40 mg PO DAILY 06/04/18 Gabapentin [Neurontin] 800 mg PO QID 06/04/18 Methadone HCl [Methadone] 10 mg PO BID 06/04/18 Alprazolam [Xanax] 1 mg PO BEDTIME 07/15/18 Amoxicillin & Pot Clavulanate [Augmentin] 875 mg PO BID #20 tab 07/15/18 Citalopram Hydrobromide [Celexa] 40 mg PO BID 07/15/18 Sulfa/Trimeth 800/160 (Ds) Tab [Bactrim DS] 1 tablet PO BID #5 tab 08/29/18 Transfer to Outside Facility - Transfer Information Decision to Transfer Date: 06/04/19 Decision to Transfer Time: 12:47 Reason for Transfer: specialized care not available Accepting Provider:: dr hernandez Accepting Facility: [facility]
[2019-06-04 13:03] VITALS: BP 106/64; TEMP 100.3
[2019-06-04] MEDS ORDERED: metroNIDAZOLE IV PREMIX 500MG 100 ML IVPB ONE (13:17)
[2019-06-04 13:30] VITALS: O2SAT 95
== END 2019-06-04 13:25 | disposition short-term general hospital (02) ==
LOC: ER 10:16
DX: R06.03 Acute respiratory distress (principal); J69.0 Pneumonitis due to inhalation of food and vomit; D64.9 Anemia, unspecified; K92.2 Gastrointestinal hemorrhage, unspecified; R41.0 Disorientation, unspecified; R00.0 Tachycardia, unspecified; R11.2 Nausea with vomiting, unspecified; K21.9 Gastro-esophageal reflux disease without esophagitis; Z79.899 Other long term (current) drug therapy; Z88.1 Allergy status to other antibiotic agents; Z99.81 Dependence on supplemental oxygen; M06.9 Rheumatoid arthritis, unspecified
CPT/HCPCS: 74019; 80053; 80307; 81001; 82550; 82553; 83605; 83735; 83880; 84484; 84703; 85025; 85379; 85610; 85730; 86850; 86900; 86901; 87040; 87086; 87502; 93005; 94640; J0696; J2405; J2930; J3490; J7030; J7050; J7620

== ENCOUNTER 2019-09-24 13:36 | Emergency (ER) | payer SELFPAY ==
[2019-09-24 14:59] VITALS: O2SAT 92
--- NOTE | 2019-09-24 15:47 | ED.PDOC ---
History of Present Illness - General Chief Complaint: General Stated Complaint: weakness Time Seen by Provider: 09/24/19 14:05 Source: patient, RN notes reviewed, Vital Signs reviewed, old records - From her visit in May 2019 Exam Limitations: no limitations - History of Present Illness Initial Comments: Patient is a 54-year-old white female who presents with complaints of generalized weakness and fatigue. This is been ongoing for a few weeks and worsening. Nothing seems to make it better. Worse with standing and exertion. There is associated mild shortness of breath but patient denies any chest pain, nausea, vomiting or diarrhea. Patient also mentions that she is having difficulty sleeping at night. Timing/Duration: getting worse, other - Ongoing for a few weeks. Severity: mild Improving Factors: nothing Worsening Factors: movement Associated Symptoms: malaise, shortness of breath, weakness Allergies/Adverse Reactions: Allergies Clindamycin Allergy (Verified 06/04/18 10:23) Vomitting Home Medications: Ambulatory Orders Esomeprazole Magnesium [Nexium] 40 mg PO DAILY 06/04/18 Gabapentin [Neurontin] 800 mg PO QID 06/04/18 Methadone HCl [Methadone] 10 mg PO BID 06/04/18 Alprazolam [Xanax] 1 mg PO BEDTIME 07/15/18 Amoxicillin & Pot Clavulanate [Augmentin] 875 mg PO BID #20 tab 07/15/18 Citalopram Hydrobromide [Celexa] 40 mg PO BID 07/15/18 Sulfa/Trimeth 800/160 (Ds) Tab [Bactrim DS] 1 tablet PO BID #5 tab 08/29/18 Review of Systems - Review of Systems Constitutional: States: see HPI, malaise, weakness. Denies: chills, fever EENTM: States: no symptoms reported. Denies: blurred vision, double vision Respiratory: States: see HPI, short of breath. Denies: cough, stridor, wheezing Cardiology: States: no symptoms reported. Denies: chest pain, palpitations, syncope Gastrointestinal/Abdominal: States: no symptoms reported. Denies: abdominal pain, diarrhea, nausea Genitourinary: States: no symptoms reported Musculoskeletal: States: no symptoms reported. Denies: back pain, neck pain Skin: States: no symptoms reported. Denies: change in color, rash Neurological: States: no symptoms reported Endocrine: States: no symptoms reported Hematologic/Lymphatic: States: see HPI, anemia. Denies: easy bleeding, easy br uising, swollen glands All other Systems: Reviewed and Negative, No Change from Baseline Past Medical History (General) - Patient Medical History Hx Seizures: No Hx Stroke: No Hx Dementia: No Hx Asthma: No Hx of COPD: No Hx Cardiac Disorders: No Hx Congestive Heart Failure: No Hx Pacemaker: No Hx Hypertension: No Hx Thyroid Disease: No Hx Diabetes: No Hx Gastroesophageal Reflux: Yes Hx Renal Disease: No Hx Cancer: No Hx of HIV: No Hx Hepatitis C: No Hx MRSA: No - Vaccination History Hx Tetanus, Diphtheria Vaccination: Yes Hx Influenza Vaccination: Yes - 2018 Hx Pneumococcal Vaccination: Yes - Social History Hx Tobacco Use: No Hx Chewing Tobacco Use: No Hx Alcohol Use: No Hx Substance Use: No Hx Substance Use Treatment: No Hx Depression: No Hx Physical Abuse: No Hx Emotional Abuse: No Hx Suspected Abuse: No - Female History Patient : No Family Medical History - Family History Father Living Status: Hx Cardiac Disease: Yes Hx Family Diabetes: Yes Mother Family History: Unknown Living Status: Unknown Hx Family Hypertension: Yes Hx Family Diabetes: Yes Physical Exam - Physical Exam General Appearance: Alert, Anxious, Well Developed, Well Groomed, Well Hydrated, Well Nourished Eye Exam: bilateral conjunctivae pale Ears, Nose, Throat: hearing grossly normal, normal ENT inspection, normal pharynx Neck: non-tender, full range of motion, supple, normal inspection Respiratory: chest non-tender, lungs clear, normal breath sounds, no respiratory distress, no accessory muscle use Cardiovascular/Chest: normal peripheral pulses, regular rate, rhythm, no edema, no gallop, no JVD, no murmur Peripheral Pulses: radial,right: 2+, radial,left: 2+ Gastrointestinal/Abdominal: normal bowel sounds, non tender, soft, no organomegaly, no pulsatile mass Back Exam: normal inspection, no CVA tenderness, no vertebral tenderness Extremity: normal range of motion, non-tender, normal inspection, no pedal edema Neurologic: 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 09/24/19 15:55 Patient's labs show that she has some mild anemia. Additionally she has some mild hypokalemia. Her anemia is not such that she requires transfusion at this time. Plan on discharge home with follow-up with PCP. Patient also requesting a sleeping aid for her difficulty sleeping at night. At this time I have deferred prescriptions for benzodiazepines. I have recommended she follow-up with her PCP for said prescription. She voices understanding and agreement with the plan of care. Rodolfo Valencia M.D. #[id number] - Results/Orders Results/Orders: Laboratory Results - last 24 hr 09/24/19 09/24/19 14:20 14:20 WBC 6.7 RBC 3.89 L Hgb 8.4 L Hct 26.9 L MCV 69.2 L MCH 21.6 L MCHC 31.1 L RDW 19.2 H Plt Count 423 H MPV 8.0 Absolute Neuts (auto) 3.70 Absolute Lymphs (auto) 2.10 Absolute Monos (auto) 0.60 Absolute Eos (auto) 0.20 Absolute Basos (auto) 0.10 Neutrophils % 55.3 Lymphocytes % 31.0 Monocytes % 9.2 H Eosinophils % 3.4 Basophils % 1.1 Normal RBC Morphology Stain quality accept Sodium 135 Potassium 3.3 L Chloride 102 Carbon Dioxide 24 Anion Gap 12.3 BUN 23 H Creatinine 1.25 BUN/Creatinine Ratio 18.4 Random Glucose 148 H Serum Osmolality 276.5 Calcium 8.8 Total Bilirubin 0.3 AST 24 ALT 17 Alkaline Phosphatase 68 Serum Total Protein 7.6 Albumin 4.3 Globulin 3.3 Albumin/Globulin Ratio 1.3 Lipase 43 Departure - Departure Clinical Impression: Symptomatic anemia, Hypokalemia, Malaise and fatigue Time of Disposition: 15:58 Disposition: Discharge to Home or Self Care Condition: Good Departure Forms: ED Discharge - Pt. Copy, Patient Portal Self Enrollment Instructions: Generalized Weakness (DC), Anemia Caused by Low Iron, Adult (DC) Diet: resume usual diet Activity: increase activity as tolerated Referrals: Yemi Cardona MD [Primary Care Provider] - 1-5 Days Home Medications: Ambulatory Orders Esomeprazole Magnesium [Nexium] 40 mg PO DAILY 06/04/18 Gabapentin [Neurontin] 800 mg PO QID 06/04/18 Methadone HCl [Methadone] 10 mg PO BID 06/04/18 Alprazolam [Xanax] 1 mg PO BEDTIME 07/15/18 Amoxicillin & Pot Clavulanate [Augmentin] 875 mg PO BID #20 tab 07/15/18 Citalopram Hydrobromide [Celexa] 40 mg PO BID 07/15/18 Sulfa/Trimeth 800/160 (Ds) Tab [Bactrim DS] 1 tablet PO BID #5 tab 08/29/18
[2019-09-24 16:08] VITALS: BP 109/67
[2019-09-24 16:09] VITALS: TEMP 98.5
== END 2019-09-24 16:05 | disposition home or self-care (01) ==
LOC: ER 13:36
DX: D64.9 Anemia, unspecified (principal); R53.1 Weakness; E87.6 Hypokalemia; R06.02 Shortness of breath

== ENCOUNTER 2020-01-05 15:51 | Emergency (ER) | payer SELFPAY ==
--- NOTE | 2020-01-05 16:07 | ED.PDOC ---
History of Present Illness - General Chief Complaint: GI Problem Stated Complaint: weak, black/tarry stool Time Seen by Provider: 01/05/20 15:54 Information Source: patient, family - History of Present Illness Initial Comments: 55 yo F with a pmh of anemia and GERD comes in with the c/c of 3 days of weakness, shortness of breath and one day of black stools (2 BM). States she has had this before, last transfusion was May 2019 (hgb 4.5 at that time). States she has a history of coffee ground emesis in the past with multiple prior scopes which did not reveal pathology. Has significant GERD which has led to recurrent aspiration pneumonia. She wears oxygen PRN at home due to damage to her lungs. Never smoker. Denies any red/bloody bm, no emesis. No chest pain. Has a chronic cough from GERD. No fevers. Quality: moderate Timing/Duration: days Associated Symptoms: fatigue, heartburn, shortness of breath, weakness Review of Systems - Review of Systems Constitutional: States: malaise, weakness. Denies: chills, diaphoresis, fever EENTM: Denies: blurred vision, double vision, ear discharge Respiratory: States: cough, short of breath. Denies: orthopnea, wheezing Cardiology: Denies: chest pain, edema, palpitations Gastrointestinal/Abdominal: States: other - black bm x 2. Denies: abdominal pain, constipation, diarrhea, nausea, vomiting Genitourinary: Denies: discharge, frequency, hematuria Musculoskeletal: Denies: back pain, joint swelling, muscle pain, muscle stiffness Skin: Denies: change in color, dryness, lesions, rash Neurological: Denies: depressed, headache, numbness, paresthesia, tingling, tremors Hematologic/Lymphatic: States: anemia. Denies: blood clots, easy bruising All other Systems: Reviewed and Negative Past Medical History (General) - Patient Medical History Hx Seizures: No Hx Stroke: No Hx Dementia: No Hx Asthma: No Hx of COPD: No Hx Cardiac Disorders: No - chronic anemia Hx Congestive Heart Failure: No Hx Pacemaker: No Hx Hypertension: No Hx Thyroid Disease: No Hx Diabetes: No Hx Gastroesophageal Reflux: Yes Hx Renal Disease: No Hx Cancer: No Hx of HIV: No Hx Hepatitis C: No Hx MRSA: No Surgical History: Hysterectomy - Vaccination History Hx Tetanus, Diphtheria Vaccination: Yes Hx Influenza Vaccination: Yes - 2018 Hx Pneumococcal Vaccination: Yes - Social History Hx Tobacco Use: No Hx Chewing Tobacco Use: No Hx Alcohol Use: No Hx Substance Use: No Hx Substance Use Treatment: No Hx Depression: No Hx Physical Abuse: No Hx Emotional Abuse: No Hx Suspected Abuse: No - Activities of Daily Living Hospice Agency (if applicable):: None - Female History Patient is a Female of Child Bearing Age (10 -59 yrs old): No Patient : No Family Medical History - Family History Father Living Status: Hx Cardiac Disease: Yes Hx Family Diabetes: Yes Mother Family History: Unknown Living Status: Unknown Hx Family Hypertension: Yes Hx Family Diabetes: Yes Physical Exam - Physical Exam General Appearance: Alert, Comfortable, No apparent distress Eyes, Ears, Nose, Throat Exam: PERRL/EOMI, normal ENT inspection Neck: non-tender, full range of motion, supple, normal inspection Respiratory: chest non-tender, lungs clear, normal breath sounds, no respiratory distress, no accessory muscle use Cardiovascular/Chest: normal peripheral pulses, no edema, no gallop, no JVD, no murmur, tachycardia Peripheral Pulses: 2+ Gastrointestinal/Abdominal: normal bowel sounds, non tender, soft, no organomegaly, no pulsatile mass Rectal Exam: normal exam, normal rectal tone, other - brown stool Back Exam: normal inspection, no CVA tenderness, no vertebral tenderness Extremity: normal range of motion, non-tender, normal inspection, no pedal edema, no calf tenderness Neurologic: dye colorist 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 no significant change when compared to EKG on 06/04/19. The data reviewed when caring for this patient included: nurse notes etc, prior records. The history and assessments from nurses notes were reviewed and considered, and the patient's home medication list was also reviewed and considered. Will order CBC, coags, type and screen, cmp, fecal occult, troponin, cxr. IV placed. Unable to get a second line, attempted with ultrasound. If patient loses IV, will need a central line or picc line. She has had these in the past. 01/05/20 17:02 Hgb 4.8, patient ordered 2 Units pRBC. Plan to transfer to [place] for GI bleed. My assessment and the results of testing completed here in the ED were discussed with the patient/family. All questions were answered, and they express understanding of my assessment and the plan. 01/05/20 17:11 COVID nasal swab pending. - Results/Orders Results/Orders: 01/05/20 16:15 PRBC [PACKED CELLS,LR] Stat TYPE AND SCREEN Stat RESPIRATORY PANEL 2 Stat Laboratory Results WBC 13.2 K/mm3 (4.8-10.8) H 01/05/20 16:15 RBC 2.00 M/mm3 (4.20-5.40) L 01/05/20 16:15 Hgb 4.8 gm/dL (12.0-16.0) L* 01/05/20 16:15 Hct 14.9 % (36.0-47.0) L 01/05/20 16:15 MCV 74.6 fl (81.0-99.0) L 01/05/20 16:15 MCH 23.8 pg (27.0-31.0) L 01/05/20 16:15 MCHC 31.9 g/dL (33.0-37.0) L 01/05/20 16:15 RDW 25.0 % (11.5-14.5) H 01/05/20 16:15 Plt Count 312 K/mm3 (130-400) 01/05/20 16:15 MPV 8.8 fl (7.40-10.4) 01/05/20 16:15 Absolute Neuts (auto) 9.60 K/uL (1.8-6.8) H 01/05/20 16:15 Absolute Lymphs (auto) 2.40 K/uL (1.0-3.4) 01/05/20 16:15 Absolute Monos (auto) 1.00 K/uL (0.2-0.8) H 01/05/20 16:15 Absolute Eos (auto) 0.10 K/uL (0.0-0.4) 01/05/20 16:15 Absolute Basos (auto) 0.10 K/uL (0.0-0.1) 01/05/20 16:15 Neutrophils % 72.3 % (42.0-78.0) 01/05/20 16:15 Lymphocytes % 18.4 % (20.0-50.0) L 01/05/20 16:15 Monocytes % 7.4 % (2.0-9.0) 01/05/20 16:15 Eosinophils % 1.1 % (1.0-5.0) 01/05/20 16:15 Basophils % 0.8 % (0.0-2.0) 01/05/20 16:15 Normal RBC Morphology 2+aniso 3+hypochromia 2+microcytosis Plts ev adequate Stain quality accept 01/05/20 16:15 Normal RBC Morphology 2+aniso 3+hypochromia 2+microcytosis Plts ev adequate Stain quality accept 01/05/20 16:15 Normal RBC Morphology 2+aniso 3+hypochromia 2+microcytosis Plts ev adequate Stain quality accept 01/05/20 16:15 Normal RBC Morphology 2+aniso 3+hypochromia 2+microcytosis Plts ev adequate Stain quality accept 01/05/20 16:15 Normal RBC Morphology 2+aniso 3+hypochromia 2+microcytosis Plts ev adequate Stain quality accept 01/05/20 16:15 PT 10.4 SECONDS (9.0-10.9) 01/05/20 16:15 INR 1.05 (0.9-1.15) 01/05/20 16:15 PTT (SP) 19.6 SECONDS (21.8-31.6) L 01/05/20 16:15 Sodium 134 mmol/L (135-145) L 01/05/20 16:15 Potassium 4.0 mmol/L (3.6-5.0) 01/05/20 16:15 Chloride 107 mmol/L (101-111) 01/05/20 16:15 Carbon Dioxide 19 mmol/L (21-31) L 01/05/20 16:15 Anion Gap 12.0 (12-18) 01/05/20 16:15 BUN 36 mg/dL (7-18) H 01/05/20 16:15 Creatinine 0.74 mg/dL (0.6-1.3) 01/05/20 16:15 BUN/Creatinine Ratio 48.6 (10-20) H 01/05/20 16:15 Random Glucose 148 mg/dL (70-105) H 01/05/20 16:15 Serum Osmolality 279.3 mOsm/L (275-295) 01/05/20 16:15 Calcium 7.5 mg/dL (8.4-10.2) L 01/05/20 16:15 Total Bilirubin 0.6 mg/dL (0.2-1.0) 01/05/20 16:15 AST 25 IU/L (10-42) 01/05/20 16:15 ALT 12 IU/L (10-60) 01/05/20 16:15 Alkaline Phosphatase 41 IU/L (42-121) L 01/05/20 16:15 Troponin I < 0.02 ng/mL (0.01-0.05) 01/05/20 16:15 Serum Total Protein 5.5 gm/dL (6.4-8.2) L 01/05/20 16:15 Albumin 2.8 g/dl (3.2-5.5) L 01/05/20 16:15 Globulin 2.7 gm/dL (2.3-3.5) 01/05/20 16:15 Albumin/Globulin Ratio 1.0 (1.1-1.9) L 01/05/20 16:15 Stool Occult Blood Positive (NEGATIVE) H 01/05/20 16:10 Patient ABO/Rh O NEGATIVE 01/05/20 16:15 Antibody Screen Negative 01/05/20 16:15 Crossmatch See Detail 01/05/20 16:15 - Consult/PCP Time Called: 17:18 Consult Reason/Comments: Hospitalist/Transfer Departure - Departure Clinical Impression: anemia Anemia Qualifiers: Anemia type: iron deficiency Iron deficiency anemia type: unspecified iron deficiency Qualified Code(s): D50.9 - Iron deficiency anemia, unspecified GI bleed Qualifiers: GI bleed type/associated pathology: unspecified gastrointestinal hemorrhage type Qualified Code(s): K92.2 - Gastrointestinal hemorrhage, unspecified Disposition: Transfer to Hospital Departure Forms: ED Discharge - Pt. Copy, Patient Portal Self Enrollment Referrals: Yemi Cardona MD [Primary Care Provider] - 1-2 Days Home Medications: Ambulatory Orders Gabapentin [Neurontin] 800 mg PO QID 06/04/18 Citalopram Hydrobromide [Celexa] 40 mg PO BID 07/15/18 Quetiapine Fumarate [Seroquel] 50 mg PO BEDTIME 01/05/20 Tramadol HCl 50 mg PO Q6H PRN 01/05/20 Transfer to Outside Facility - Transfer Information Decision to Transfer Date: 01/05/20 Decision to Transfer Time: 16:50 Reason for Transfer: specialized care not available Accepting Provider:: Dr. Watts Accepting Facility: [facility]
[2020-01-05] MEDS ORDERED: PANTOPRAZOLE SODIUM IV 40 MG VIAL IV ONE (16:25)
[2020-01-05] MEDS ORDERED: SODIUM CHLORIDE 0.9% 1000ML 1,000 ML IVS PRN (16:25)
--- NOTE | 2020-01-05 16:34 | RAD ---
EXAM DESCRIPTION: Chest,2 Views CLINICAL HISTORY: 55 years Female, short of breath COMPARISON: 29 August 2018 TECHNIQUE: PA/lateral FINDINGS: There is no cardiac or pulmonary abnormality. The lungs are clear. There is no effusion. A large hiatus hernia is observed. IMPRESSION: 1. Large hiatus hernia otherwise normal chest Electronically signed by: Ryan Tabor MD 01/05/2020 4:33 PM CDT
[2020-01-05] MEDS ORDERED: SODIUM CHLORIDE 0.9% 500ML 500 ML ONE (17:14)
[2020-01-05] MEDS ORDERED: LORazepam 0.5 MG TAB PO ONE (17:43)
[2020-01-05 18:38] VITALS: TEMP 98.1
[2020-01-05 18:56] VITALS: BP 135/74; O2SAT 98
== END 2020-01-05 18:56 | disposition short-term general hospital (02) ==
LOC: ER 15:51
DX: D50.9 Iron deficiency anemia, unspecified (principal); K92.2 Gastrointestinal hemorrhage, unspecified; R53.1 Weakness; R00.0 Tachycardia, unspecified
CPT/HCPCS: 36415; 71046; 80053; 82270; 84484; 85025; 85610; 85730; 86850; 86900; 86901; 86922; 87635; J7030; J7040; P9016

== ENCOUNTER 2020-03-22 10:30 | Emergency (ER) | payer SELFPAY ==
[2020-03-22] MEDS ORDERED: SODIUM CHLORIDE 0.9% 1000ML 1,000 ML IVS ONE ×3 (10:47→15:02)
[2020-03-22] MEDS ORDERED: ACETAMINOPHEN 500 MG TAB PO ONE (10:47)
--- NOTE | 2020-03-22 10:51 | ED.PDOC ---
History of Present Illness - General Chief Complaint: General Stated Complaint: anemic, light headed Time Seen by Provider: 03/22/20 10:37 Source: patient Exam Limitations: no limitations Additional Information: Pt reports feeling weak and lightheaded for about a week. She says she fell on Saturday, felt lightheaded and got weak in the knees and went down. Not sure if she had LOC, but doesn't think so. Hit her head on the sink but doesn't really have a GANDHI at this time. Pt says she had some N/V last week, and noticed a little dark streaks in it, but hasn't had N/V for days. Nl BM's without dark stools or BRBPR. Pt denies CP, SOB, abd pain, diarrhea. Pt says it feels identical to when she's been anemic in past and required a transfusion. Pt says her doctors are unsure what the source of the anemia is. She had EGD/colonoscopy in December this year and was unremarkable. Pt has required transfusions multiple times. Pt says she does not take NSAIDS, is not on blood thinners and does not consume alcohol. - History of Present Illness Timing/Duration: 1 week Improving Factors: rest Worsening Factors: movement Associated Symptoms: loss of appetite, malaise, nausea/vomiting, weakness Allergies/Adverse Reactions: Allergies Clindamycin Allergy (Verified 03/22/20 10:54) Vomitting Home Medications: Ambulatory Orders Gabapentin [Neurontin] 800 mg PO QID 06/04/18 Citalopram Hydrobromide [Celexa] 40 mg PO BID 07/15/18 Quetiapine Fumarate [Seroquel] 50 mg PO BEDTIME 01/05/20 Tramadol HCl 50 mg PO Q6H PRN 01/05/20 Review of Systems - Review of Systems Constitutional: States: malaise, weakness. Denies: chills, diaphoresis, fever EENTM: Denies: ear pain, ear discharge, nose pain, nose congestion, throat pain, throat swelling Respiratory: States: no symptoms reported. Denies: cough, short of breath, wheezing Cardiology: States: no symptoms reported. Denies: chest pain, edema, palpitations, syncope Gastrointestinal/Abdominal: States: nausea, vomiting. Denies: abdominal pain, constipation, diarrhea Musculoskeletal: States: no symptoms reported, muscle pain Skin: States: no symptoms reported Neurological: States: no symptoms reported Endocrine: States: no symptoms reported Hematologic/Lymphatic: States: no symptoms reported Past Medical History (General) - Patient Medical History Hx Seizures: No Hx Stroke: No Hx Dementia: No Hx Asthma: No Hx of COPD: No Hx Cardiac Disorders: No - chronic anemia Hx Congestive Heart Failure: No Hx Pacemaker: No Hx Hypertension: No Hx Thyroid Disease: No Hx Diabetes: No Hx Gastroesophageal Reflux: Yes Hx Renal Disease: No Hx Cancer: No Hx of HIV: No Hx Hepatitis C: No Hx MRSA: No - Vaccination History Hx Tetanus, Diphtheria Vaccination: Yes Hx Influenza Vaccination: Yes - 2018 Hx Pneumococcal Vaccination: Yes - Social History Hx Tobacco Use: No Hx Chewing Tobacco Use: No Hx Alcohol Use: No Hx Substance Use: No Hx Substance Use Treatment: No Hx Depression: No Hx Physical Abuse: No Hx Emotional Abuse: No Hx Suspected Abuse: No - Female History Patient : No Family Medical History - Family History Father Living Status: Hx Cardiac Disease: Yes Hx Family Diabetes: Yes Mother Family History: Unknown Living Status: Unknown Hx Family Hypertension: Yes Hx Family Diabetes: Yes Physical Exam - Physical Exam General Appearance: Alert, No apparent distress, Well Developed, Well Groomed, Well Nourished Ears, Nose, Throat: hearing grossly normal Neck: non-tender, full range of motion Respiratory: chest non-tender, lungs clear, normal breath sounds, no respiratory distress, no accessory muscle use Cardiovascular/Chest: normal peripheral pulses, regular rate, rhythm, no edema, no gallop, no JVD, no murmur Gastrointestinal/Abdominal: normal bowel sounds, non tender, soft, no organomegaly, no pulsatile mass Extremity: non-tender, normal inspection Neurologic: alert, normal mood/affect, oriented x 3 Skin Exam: normal color, warm/dry Progress - Progress Progress: 03/22/20 11:55 Reviewed past visits. Pt here on 01/05/20 with weakness. Pt had HGB of 4.8 with + guiac. Pt was transferred to for GIB. Pt had a HGB of 8.4 on 09/24/19. 03/22/20 12:02 EXAM: Chest,1 View CLINICAL HISTORY: SOB COMPARISON STUDY: Chest x-ray from January 05, 2020 TECHNICAL: A single anteroposterior (AP) view of the chest was performed. FINDINGS: No consolidations, effusions, or edema. The heart size is not enlarged. AP portable technique causes magnification with some enlargement of the cardiac silhouette. Large hiatal hernia is present. IMPRESSION: 1. No acute abnormality. 2. Large hiatal hernia. Electronically signed by: Bawlinder Jaime MD 03/22/2020 11:13 AM CDT 03/22/20 13:11 Pt is no distress. No vomiting or diarrhea in ED. No rectal bleeding. Pt's SBP now 124 after IVF's. Pt's HGB today nonacute. 03/22/20 16:30 Pt resting comfortably. Pt's vitals unremarkable. Pt feels back to baseline. She is unable to provide urine after 3L of NS. She will take home specimen cup and bring it back tonight when she's able to provide specimen. Pt has no concerns about being d/c home. 03/22/20 12:27 Laboratory Results WBC 6.4 K/mm3 (4.8-10.8) 03/22/20 11:10 RBC 4.11 M/mm3 (4.20-5.40) L 03/22/20 11:10 Hgb 8.2 gm/dL (12.0-16.0) L 03/22/20 11:10 Hct 27.4 % (36.0-47.0) L 03/22/20 11:10 MCV 66.6 fl (81.0-99.0) L 03/22/20 11:10 MCH 20.0 pg (27.0-31.0) L 03/22/20 11:10 MCHC 30.0 g/dL (33.0-37.0) L 03/22/20 11:10 RDW 20.7 % (11.5-14.5) H 03/22/20 11:10 Plt Count 521 K/mm3 (130-400) H 03/22/20 11:10 MPV 8.7 fl (7.40-10.4) 03/22/20 11:10 Absolute Neuts (auto) 3.50 K/uL (1.8-6.8) 03/22/20 11:10 Absolute Lymphs (auto) 1.90 K/uL (1.0-3.4) 03/22/20 11:10 Absolute Monos (auto) 0.70 K/uL (0.2-0.8) 03/22/20 11:10 Absolute Eos (auto) 0.10 K/uL (0.0-0.4) 03/22/20 11:10 Absolute Basos (auto) 0.10 K/uL (0.0-0.1) 03/22/20 11:10 Neutrophils % 54.9 % (42.0-78.0) 03/22/20 11:10 Lymphocytes % 30.3 % (20.0-50.0) 03/22/20 11:10 Monocytes % 11.2 % (2.0-9.0) H 03/22/20 11:10 Eosinophils % 2.2 % (1.0-5.0) 03/22/20 11:10 Basophils % 1.4 % (0.0-2.0) 03/22/20 11:10 Normal RBC Morphology 2+aniso 2+hypochromia 2+microcytosis 1+ovalocytes Plts ev increased Stain quality accept 03/22/20 11:10 Normal RBC Morphology 2+aniso 2+hypochromia 2+microcytosis 1+ovalocytes Plts ev increased Stain quality accept 03/22/20 11:10 Normal RBC Morphology 2+aniso 2+hypochromia 2+microcytosis 1+ovalocytes Plts ev increased Stain quality accept 03/22/20 11:10 Normal RBC Morphology 2+aniso 2+hypochromia 2+microcytosis 1+ovalocytes Plts ev increased Stain quality accept 03/22/20 11:10 Normal RBC Morphology 2+aniso 2+hypochromia 2+microcytosis 1+ovalocytes Plts ev increased Stain quality accept 03/22/20 11:10 Normal RBC Morphology 2+aniso 2+hypochromia 2+microcytosis 1+ovalocytes Plts ev increased Stain quality accept 03/22/20 11:10 Sodium 137 mmol/L (135-145) 03/22/20 11:10 Potassium 3.6 mmol/L (3.6-5.0) 03/22/20 11:10 Chloride 102 mmol/L (101-111) 03/22/20 11:10 Carbon Dioxide 22 mmol/L (21-31) 03/22/20 11:10 Anion Gap 16.6 (12-18) 03/22/20 11:10 BUN 14 mg/dL (7-18) 03/22/20 11:10 Creatinine 1.12 mg/dL (0.6-1.3) 03/22/20 11:10 BUN/Creatinine Ratio 12.5 (10-20) 03/22/20 11:10 Random Glucose 100 mg/dL (70-105) 03/22/20 11:10 Serum Osmolality 274.4 mOsm/L (275-295) L 03/22/20 11:10 Lactic Acid 3.3 mmol/L (0.5-2.2) H* 03/22/20 11:10 Calcium 9.1 mg/dL (8.4-10.2) 03/22/20 11:10 Total Bilirubin 0.6 mg/dL (0.2-1.0) 03/22/20 11:10 AST 26 IU/L (10-42) 03/22/20 11:10 ALT 19 IU/L (10-60) 03/22/20 11:10 Alkaline Phosphatase 57 IU/L (42-121) 03/22/20 11:10 Troponin I < 0.02 ng/mL (0.01-0.05) 03/22/20 11:10 Serum Total Protein 7.6 gm/dL (6.4-8.2) 03/22/20 11:10 Albumin 4.1 g/dl (3.2-5.5) 03/22/20 11:10 Globulin 3.5 gm/dL (2.3-3.5) 03/22/20 11:10 Albumin/Globulin Ratio 1.2 (1.1-1.9) 03/22/20 11:10 - EKG/XRAY/CT EKG: Sinus, no ST T wave changes Comments: Nl intervals, nl axis, no Q waves Departure - Departure Clinical Impression: General weakness, Dehydration, Anemia, History of transfusion Time of Disposition: 16:32 Disposition: Discharge to Home or Self Care Condition: Excellent Departure Forms: ED Discharge - Pt. Copy, Patient Portal Self Enrollment Instructions: Dehydration, Adult (DC) Diet: resume usual diet Activity: increase activity as tolerated Referrals: Yemi Cardona MD [Primary Care Provider] - 1-2 Weeks Home Medications: Ambulatory Orders Gabapentin [Neurontin] 800 mg PO QID 06/04/18 Citalopram Hydrobromide [Celexa] 40 mg PO BID 07/15/18 Quetiapine Fumarate [Seroquel] 50 mg PO BEDTIME 01/05/20 Tramadol HCl 50 mg PO Q6H PRN 01/05/20
--- NOTE | 2020-03-22 11:14 | RAD ---
EXAM: Chest,1 View CLINICAL HISTORY: SOB COMPARISON STUDY: Chest x-ray from January 05, 2020 TECHNICAL: A single anteroposterior (AP) view of the chest was performed. FINDINGS: No consolidations, effusions, or edema. The heart size is not enlarged. AP portable technique causes magnification with some enlargement of the cardiac silhouette. Large hiatal hernia is present. IMPRESSION: 1. No acute abnormality. 2. Large hiatal hernia. Electronically signed by: Balwinder Jaime MD 03/22/2020 11:13 AM CDT
[2020-03-22] MEDS ORDERED: SODIUM CHLORIDE 0.9% 1000ML 1,000 ML ONE ×2 (13:15→14:59)
[2020-03-22] MEDS ORDERED: fentaNYL CITRATE INJ 50 MCG/ML 2 ML AMP IV ONE (13:18)
[2020-03-22] MEDS ORDERED: fentaNYL CITRATE INJ 50 MCG/ML 2 ML AMP ONE (13:18)
[2020-03-22 16:48] VITALS: TEMP 98.3
[2020-03-22 16:49] VITALS: BP 115/78; O2SAT 98
== END 2020-03-22 16:45 | disposition home or self-care (01) ==
LOC: ER 10:30
DX: D64.9 Anemia, unspecified (principal); E86.0 Dehydration; R53.1 Weakness; K92.1 Melena; R11.2 Nausea with vomiting, unspecified; K21.9 Gastro-esophageal reflux disease without esophagitis; Z79.899 Other long term (current) drug therapy; Z88.1 Allergy status to other antibiotic agents
CPT/HCPCS: 36415; 71045; 80053; 83605; 84484; 85025; 93005; J3010; J7030

== ENCOUNTER 2020-03-25 06:46 | Emergency (ER) | payer SELFPAY ==
[2020-03-25] MEDS ORDERED: KETOROLAC TROMETHAMINE INJ 30 MG/ML VIAL IM ONE (07:04)
[2020-03-25] MEDS ORDERED: AMOXICILLIN & POT CLAVULANATE 875 MG TAB PO ONE (07:05)
[2020-03-25 07:07] VITALS: BP 152/87; TEMP 97.6; O2SAT 99
--- NOTE | 2020-03-25 07:07 | ED.PDOC ---
History of Present Illness - General Chief Complaint: Dental/Mouth Stated Complaint: right lower jaw pain and swelling Time Seen by Provider: 03/25/20 06:51 Source: patient - History of Present Illness Initial Comments: 55-year-old female who presents with chief complaint of tooth pain. Onset yesterday and worsening through the night, located to the right mandibular gum/jawline, reports is constant 10/10 severity throbbing pain without radiation, tried applying cold and warm compresses and taking ibuprofen 3 hours ago with little relief. Pain is worsened by chewing and pressure to the area. She does report moderate swelling to the right lower jaw. Denies any fevers, chills, throat pain, trouble swallowing, muffled voice, ear pain, other systemic symptoms. She does report history of poor dentition. She states she is scheduled to see the dentist next week for her dental issues. She wants to have all of her teeth removed and get dentures. Allergies/Adverse Reactions: Allergies Clindamycin Allergy (Verified 03/22/20 10:54) Vomitting Home Medications: Ambulatory Orders Gabapentin [Neurontin] 800 mg PO QID 06/04/18 Citalopram Hydrobromide [Celexa] 40 mg PO BID 07/15/18 Quetiapine Fumarate [Seroquel] 50 mg PO BEDTIME 01/05/20 Review of Systems - Review of Systems Review of Systems: 03/25/20 07:30 as per HPI All other Systems: Reviewed and Negative Past Medical History (General) - Patient Medical History Hx Seizures: No Hx Stroke: No Hx Dementia: No Hx Asthma: No Hx of COPD: No Hx Cardiac Disorders: No - chronic anemia Hx Congestive Heart Failure: No Hx Pacemaker: No Hx Hypertension: No Hx Thyroid Disease: No Hx Diabetes: No Hx Gastroesophageal Reflux: Yes Hx Renal Disease: No Hx Cancer: No Hx of HIV: No Hx Hepatitis C: No Hx MRSA: No - Vaccination History Hx Tetanus, Diphtheria Vaccination: Yes Hx Influenza Vaccination: Yes - 2018 Hx Pneumococcal Vaccination: Yes - Social History Hx Tobacco Use: No Hx Chewing Tobacco Use: No Hx Alcohol Use: No Hx Substance Use: No Hx Substance Use Treatment: No Hx Depression: No Hx Physical Abuse: No Hx Emotional Abuse: No Hx Suspected Abuse: No - Female History Patient : No Family Medical History - Family History Father Living Status: Hx Cardiac Disease: Yes Hx Family Diabetes: Yes Mother Family History: Unknown Living Status: Unknown Hx Family Hypertension: Yes Hx Family Diabetes: Yes Physical Exam - Physical Exam General Appearance: Alert, Comfortable, No apparent distress Eye Exam: bilateral normal Ears, Nose, Throat: hearing grossly normal, other - Numerous teeth missing and severe dental caries present throughout. There is noted moderate swelling to the right mandibular jawline which is moderately tender without warmth/erythema. There is no noted erythema or swelling of the gumline, no drainage. Oropharynx and tympanic membranes appear nml Neck: non-tender, full range of motion, normal inspection Respiratory: lungs clear, normal breath sounds Cardiovascular/Chest: normal peripheral pulses, regular rate, rhythm, no edema Peripheral Pulses: radial,right: 2+, radial,left: 2+ Gastrointestinal/Abdominal: non tender, soft Back Exam: normal inspection, no CVA tenderness, no vertebral tenderness Extremity: normal range of motion, normal inspection Neurologic: physiotherapy aide II-XII nml as tested, no motor/sensory deficits, alert, normal mood/affect, oriented x 3 Skin Exam: normal color, warm/dry Progress - Progress Progress: 03/25/20 07:33 Tooth ache/jaw pain -Consider dental abscess/pulpitis most likely, consider also dental caries, hypersensitivity, other -We will give Toradol 30 mg IM in the ED. We will send home with Augmentin 875 twice daily for 7 days, first dose here. We will also give short course prescription of Tylenol 3 for breakthrough pain. Advised continued [id number] medications. Discussed at length that she will need to keep her dentist appointment and follow-up for definitive treatment with dental extraction of the affected teeth. -Discharged home in good condition, return warnings discussed Derick Salas MD Billing #[id number] Departure - Departure Clinical Impression: Dental abscess, Dental caries Time of Disposition: 07:05 Disposition: Discharge to Home or Self Care Condition: Good Departure Forms: ED Discharge - Pt. Copy, Patient Portal Self Enrollment Instructions: DI for Mouth Pain, Tooth Abscess (DC) Diet: resume usual diet - soft mechanical, advance as tolerated Activity: increase activity as tolerated Referrals: Yemi Cardona MD [Primary Care Provider] - 1-2 Weeks Home Medications: Ambulatory Orders Gabapentin [Neurontin] 800 mg PO QID 06/04/18 Citalopram Hydrobromide [Celexa] 40 mg PO BID 07/15/18 Quetiapine Fumarate [Seroquel] 50 mg PO BEDTIME 01/05/20 Additional Instructions: Continue taking OTC medications for pain relief such as ibuprofen 600 mg every 6 hours, Tylenol 650 mg every 6 hours, topical Orajel, etc... for pain control. You may take the Tylenol #3 for breakthrough pain - do not drive or operate heavy machinery while taking. Follow up with the dentist for definitive treatment of the dental infection and pain.
== END 2020-03-25 07:30 | disposition home or self-care (01) ==
LOC: ER 06:46
DX: K04.7 Periapical abscess without sinus (principal); K02.9 Dental caries, unspecified; D64.9 Anemia, unspecified; K21.9 Gastro-esophageal reflux disease without esophagitis; Z88.1 Allergy status to other antibiotic agents

== ENCOUNTER 2020-06-03 17:30 | Emergency (ER) | payer SELFPAY ==
--- NOTE | 2020-06-03 18:02 | ED.PDOC ---
History of Present Illness - General Time Seen by Provider: 06/03/20 17:31 Source: patient, RN notes reviewed, Vital Signs reviewed, old records - History of Present Illness Initial Comments: 55 yo F with hx of GI bleed requiring blood transfusion comes in with the c.c of generalized malaise, weakness, shortness of breath. States like how she felt when she was anemic prior. Had prior EGD and colonoscopy which was negative for source of blood loss. was seeing a floor refinisher? but doesn't have insurance so didn't follow up. was told she had bone marrow failure. no dizziness. no chest pain or palpations. Did have cough, but no fever or sore throat. denies n/v/abdominal pain. no black or bloody bm. Timing/Duration: 1 week Severity: moderate Associated Symptoms: shortness of breath, weakness Allergies/Adverse Reactions: Allergies Clindamycin Allergy (Verified 03/22/20 10:54) Vomitting Home Medications: Ambulatory Orders Gabapentin [Neurontin] 800 mg PO QID 06/04/18 Citalopram Hydrobromide [Celexa] 40 mg PO BID 07/15/18 Quetiapine Fumarate [Seroquel] 50 mg PO BEDTIME 01/05/20 Ferrous Sulfate 324 mg PO BID #60 tab 06/03/20 Review of Systems - Review of Systems Constitutional: States: malaise, weakness. Denies: chills, fever EENTM: Denies: blurred vision, throat pain Respiratory: States: cough, short of breath. Denies: orthopnea, stridor, wheezing Cardiology: Denies: chest pain, palpitations, syncope Gastrointestinal/Abdominal: States: nausea. Denies: abdominal pain, constipation, diarrhea, vomiting Musculoskeletal: States: back pain Skin: Denies: rash Neurological: Denies: headache Endocrine: Denies: unexplained weight loss Hematologic/Lymphatic: Denies: blood clots, easy bleeding, easy bruising Past Medical History (General) - Patient Medical History Hx Seizures: No Hx Stroke: No Hx Dementia: No Hx Asthma: No Hx of COPD: No Hx Cardiac Disorders: No - chronic anemia Hx Congestive Heart Failure: No Hx Pacemaker: No Hx Hypertension: No Hx Thyroid Disease: No Hx Diabetes: No Hx Gastroesophageal Reflux: Yes Hx Renal Disease: No Hx Cancer: No Hx of HIV: No Hx Hepatitis C: No Hx MRSA: No - Vaccination History Hx Tetanus, Diphtheria Vaccination: Yes Hx Influenza Vaccination: Yes - 2018 Hx Pneumococcal Vaccination: Yes - Social History Hx Tobacco Use: No Hx Chewing Tobacco Use: No Hx Alcohol Use: No Hx Substance Use: No Hx Substance Use Treatment: No Hx Depression: No Hx Physical Abuse: No Hx Emotional Abuse: No Hx Suspected Abuse: No - Female History Patient : No Family Medical History - Family History Father Living Status: Hx Cardiac Disease: Yes Hx Family Diabetes: Yes Mother Family History: Unknown Living Status: Unknown Hx Family Hypertension: Yes Hx Family Diabetes: Yes Physical Exam - Physical Exam General Appearance: Alert, Comfortable, No apparent distress, Well Developed, Well Groomed, Well Hydrated, Well Nourished Eye Exam: bilateral normal Ears, Nose, Throat: normal ENT inspection Neck: non-tender, full range of motion, supple, normal inspection Respiratory: chest non-tender, lungs clear, normal breath sounds, no respiratory distress, no accessory muscle use Cardiovascular/Chest: normal peripheral pulses, regular rate, rhythm, no edema, no gallop, no JVD, no murmur Peripheral Pulses: radial,right: 2+, radial,left: 2+ Gastrointestinal/Abdominal: normal bowel sounds, non tender, soft, no organomegaly, no pulsatile mass Rectal Exam: normal exam, normal rectal tone, heme negative stool Back Exam: normal inspection, no CVA tenderness, no vertebral tenderness Extremity: normal range of motion, non-tender, normal inspection, no pedal ed deng, no calf tenderness, normal capillary refill Neurologic: no motor/sensory deficits, alert, normal mood/affect, oriented x 3 Skin Exam: normal color, warm/dry Progress - Progress Progress: 06/03/20 23:47 delay in disp due to getting blood transfusion prior to dispo. 06/04/20 05:20 Laboratory Results WBC 5.8 K/mm3 (4.8-10.8) 06/03/20 18:20 RBC 3.07 M/mm3 (4.20-5.40) L 06/03/20 18:20 Hgb 9.0 gm/dL (12.0-16.0) L D 06/04/20 02:32 Hct 28.0 % (36.0-47.0) L D 06/04/20 02:32 MCV 65.7 fl (81.0-99.0) L 06/03/20 18:20 MCH 20.4 pg (27.0-31.0) L 06/03/20 18:20 MCHC 31.0 g/dL (33.0-37.0) L 06/03/20 18:20 RDW 24.8 % (11.5-14.5) H 06/03/20 18:20 Plt Count 451 K/mm3 (130-400) H 06/03/20 18:20 MPV 8.4 fl (7.40-10.4) 06/03/20 18:20 Absolute Neuts (auto) 2.70 K/uL (1.8-6.8) 06/03/20 18:20 Absolute Lymphs (auto) 2.50 K/uL (1.0-3.4) 06/03/20 18:20 Absolute Monos (auto) 0.50 K/uL (0.2-0.8) 06/03/20 18:20 Absolute Eos (auto) 0.00 K/uL (0.0-0.4) 06/03/20 18:20 Absolute Basos (auto) 0.10 K/uL (0.0-0.1) 06/03/20 18:20 Neutrophils % 46.8 % (42.0-78.0) 06/03/20 18:20 Lymphocytes % 42.7 % (20.0-50.0) 06/03/20 18:20 Monocytes % 8.1 % (2.0-9.0) 06/03/20 18:20 Eosinophils % 0.4 % (1.0-5.0) L 06/03/20 18:20 Basophils % 2.0 % (0.0-2.0) 06/03/20 18:20 Normal RBC Morphology 2+aniso 2+poikilocytosis 2+hypochromia 2+microcytosis 2+ovalocytes 06/03/20 18:20 Normal RBC Morphology 2+aniso 2+poikilocytosis 2+hypochromia 2+microcytosis 2+ovalocytes 06/03/20 18:20 Normal RBC Morphology 2+aniso 2+poikilocytosis 2+hypochromia 2+microcytosis 2+ovalocytes 06/03/20 18:20 Normal RBC Morphology 2+aniso 2+poikilocytosis 2+hypochromia 2+microcytosis 2+ovalocytes 06/03/20 18:20 Normal RBC Morphology 2+aniso 2+poikilocytosis 2+hypochromia 2+microcytosis 2+ovalocytes 06/03/20 18:20 PT 10.1 SECONDS (9.0-10.9) 06/03/20 18:20 INR 1.02 (0.9-1.15) 06/03/20 18:20 PTT (SP) 23.2 SECONDS (21.8-31.6) 06/03/20 18:20 D-Dimer, Quantitative < 131.0 ng/ml (131-400) L 06/03/20 18:20 Sodium 139 mmol/L (135-145) 06/03/20 18:20 Potassium 3.4 mmol/L (3.6-5.0) L 06/03/20 18:20 Chloride 103 mmol/L (101-111) 06/03/20 18:20 Carbon Dioxide 25 mmol/L (21-31) 06/03/20 18:20 Anion Gap 14.4 (12-18) 06/03/20 18:20 BUN 21 mg/dL (7-18) H 06/03/20 18:20 Creatinine 0.85 mg/dL (0.6-1.3) 06/03/20 18:20 BUN/Creatinine Ratio 24.7 (10-20) H 06/03/20 18:20 Random Glucose 107 mg/dL (70-105) H 06/03/20 18:20 Serum Osmolality 281.0 mOsm/L (275-295) 06/03/20 18:20 Calcium 8.2 mg/dL (8.4-10.2) L 06/03/20 18:20 Total Bilirubin 0.4 mg/dL (0.2-1.0) 06/03/20 18:20 AST 21 IU/L (10-42) 06/03/20 18:20 ALT 18 IU/L (10-60) 06/03/20 18:20 Alkaline Phosphatase 51 IU/L (42-121) 06/03/20 18:20 Troponin I < 0.02 ng/mL (0.01-0.05) 06/03/20 18:20 B-Natriuretic Peptide < 15.0 pg/ml (0-100) 06/03/20 18:20 Serum Total Protein 6.6 gm/dL (6.4-8.2) 06/03/20 18:20 Albumin 3.5 g/dl (3.2-5.5) 06/03/20 18:20 Globulin 3.1 gm/dL (2.3-3.5) 06/03/20 18:20 Albumin/Globulin Ratio 1.1 (1.1-1.9) 06/03/20 18:20 TSH 1.53 uIU/mL (0.34-5.60) 06/03/20 18:20 Urine Color Yellow (Yellow) 06/03/20 19:18 Urine Appearance Cloudy (Clear) 06/03/20 19:18 Urine pH 7.5 (4.5-7.8) 06/03/20 19:18 Ur Specific Ferrum 1.020 (1.005-1.030) 06/03/20 19:18 Urine Protein Trace mg/dL 06/03/20 19:18 Urine Glucose (UA) Negative mg/dL (Negative) 06/03/20 19:18 Urine Ketones Trace mg/dL (NEGATIVE) 06/03/20 19:18 Urine Blood Negative (Negative) 06/03/20 19:18 Urine Nitrite Negative 06/03/20 19:18 Urine Bilirubin Negative (NEGATIVE) 06/03/20 19:18 Urine Urobilinogen 0.2 mg/dL (0.2-1.0) 06/03/20 19:18 Ur Leukocyte Esterase Trace (Negative) H 06/03/20 19:18 Urine RBC 0 /hpf 06/03/20 19:18 Urine WBC 0-1 /hpf 06/03/20 19:18 Ur Epithelial Cells 3-5 /hpf 06/03/20 19:18 Amorphous Sediment 2+ 06/03/20 19:18 Urine Bacteria 0 06/03/20 19:18 Stool Occult Blood Negative (NEGATIVE) 06/03/20 18:50 Patient ABO/Rh O NEGATIVE 06/03/20 18:20 Antibody Screen Negative 06/03/20 18:20 Crossmatch See Detail 06/03/20 18:20 - Results/Orders Results/Orders: patient transfused two units, symptoms resolved. VSS. She was given benadryl tylenol and steroid with infusion. Also given flexeril for low back pain. The data reviewed when caring for this patient included: nurse notes, prior records, etc. The history and assessments from nurses notes were reviewed and considered, and the patient's home medication list was also reviewed and considered. My assessment and the results of testing completed here in the ED were discussed with the patient. All questions were answered, and she express understanding of my assessment and the plan. she have been instructed to return if their symptoms worsen, and have been asked to follow up with their primary care physician and her floor refinisher to recheck today's presenting complaint. Strict return precautions given. I have reviewed medication, benefits, alternatives and side effects. Patient decided to proceed with medication. Audrey Daniel DO #[id number] - EKG/XRAY/CT EKG: Sinus - [id number] Comments: normal sinus,qt 515, no acute ischemia. XRAY: chest - Nonspecific interstitial prominence may be acute or chronic as from interstitial edema or an acute lower respiratory tract viral illness versus fibrosis. There is no evidence of acute consolidative pneumonia. Departure - Departure Clinical Impression: COVID-19 Anemia Qualifiers: Anemia type: bone marrow failure Bone marrow failure anemia type: unspecified bone marrow failure Qualified Code(s): D61.9 - Aplastic anemia, unspecified Disposition: Discharge to Home or Self Care Departure Forms: ED Discharge - Pt. Copy, Patient Portal Self Enrollment Instructions: Anemia Caused by Low Iron, Coronavirus Disease 2019 (COVID-19) Diet: resume usual diet Activity: increase activity as tolerated Referrals: Yemi Cardona MD [Primary Care Provider] - 1-2 Days Prescriptions: Ferrous Sulfate 324 mg PO BID #60 tab Home Medications: Ambulatory Orders Gabapentin [Neurontin] 800 mg PO QID 06/04/18 Citalopram Hydrobromide [Celexa] 40 mg PO BID 07/15/18 Quetiapine Fumarate [Seroquel] 50 mg PO BEDTIME 01/05/20 Ferrous Sulfate 324 mg PO BID #60 tab 06/03/20 Decision To Admit - Decistion To Admit Decision to Admit Date: 06/03/20 Decision to Admit Time: 18:26 - discussed with hospitalist, no need to admit for transfusion at this time.
--- NOTE | 2020-06-03 18:30 | RAD ---
EXAM DESCRIPTION: Chest,1 View CLINICAL HISTORY: 55 years Female short of breath COMPARISON: Portable chest dated 03/22/2020 TECHNIQUE: Portable AP view of the chest is obtained. FINDINGS IN THE CHEST: Heart: Allowing for magnification factors related to AP portable technique and body habitus, the heart is normal in size and configuration. Vasculature: [] There is no evidence of aortic aneurysm or acute findings. The pulmonary vascularity is normal. Mediastinum: No evidence of mass or adenopathy. However, noted again is a large hiatal hernia containing an air-fluid level and measuring 10.9 cm transversely. Lungs: There is diffuse interstitial prominence. There is no focal consolidation in the lungs. Pleura: There are no pleural effusions. There are no pneumothoraces. Osseous structures: No evidence of acute fracture, osteolytic lesions or osteoblastic lesions. Tubes and catheters: None Chest wall: Unremarkable. Visualized Abdomen: Unremarkable. IMPRESSION: Nonspecific interstitial prominence may be acute or chronic as from interstitial edema or an acute lower respiratory tract viral illness versus fibrosis. There is no evidence of acute consolidative pneumonia. Remainder of findings as described above. Electronically signed by: Lisa Saucedo MD 06/03/2020 6:29 PM EYE PHYSICIAN
[2020-06-03] MEDS ORDERED: diphenhydrAMINE HCL 50 MG/ML VIAL IV ONE (18:33)
[2020-06-03] MEDS ORDERED: ACETAMINOPHEN 325 MG TAB PO ONE (18:33)
[2020-06-03] MEDS ORDERED: MORPHINE SULFATE INJ 10 MG/ML VIAL IV ONE (18:39)
[2020-06-03] MEDS ORDERED: SODIUM CHLORIDE 0.9% 500ML 500 ML IVS SCH (19:00)
[2020-06-03] MEDS ORDERED: CYCLOBENZAPRINE HCL 10 MG TAB PO ONE (23:16)
[2020-06-03] MEDS ORDERED: methylPREDNISolone SODIUM SUC 125 MG/2 ML VIAL IV ONE (23:56)
[2020-06-04] MEDS ORDERED: MORPHINE SULFATE INJ 10 MG/ML VIAL IV ONE (00:59)
[2020-06-04] MEDS ORDERED: CYCLOBENZAPRINE TAB (ER DISP) 10 MG TAB PO ONE (01:45)
[2020-06-04 02:02] VITALS: O2SAT 97
[2020-06-04 03:06] VITALS: BP 148/98; TEMP 97.8
== END 2020-06-04 03:00 | disposition home or self-care (01) ==
LOC: ER 17:30
DX: U07.1 COVID-19 (principal); D61.89 Other specified aplastic anemias and other bone marrow failure syndromes; M54.5 Low back pain; G89.29 Other chronic pain; K21.9 Gastro-esophageal reflux disease without esophagitis; Z88.1 Allergy status to other antibiotic agents; Z79.899 Other long term (current) drug therapy
CPT/HCPCS: 36415; 71045; 80053; 81001; 82270; 83880; 84443; 84484; 85014; 85018; 85025; 85379; 85610; 85730; 86850; 86900; 86901; 86922; 87635; 93005; J1200; J2270; J2930; J7040; P9016